=== PATIENT | female | born 1955 | race Caucasian/White ===

== ENCOUNTER 2024-06-26 10:57 | Inpatient (IN) | payer MEDICARE, BC, SELFPAY ==
[2024-06-26] VITALS (18 sets, daily range): BP systolic 118–170; BP diastolic 84–108; PULSE 76–93; RESP 15–21; TEMP 36.6–36.9; O2SAT 87–100; BMI 25.8
--- NOTE | 2024-06-26 11:29 | EKG_ITS ---
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
--- NOTE | 2024-06-26 11:32 | PD.EDABDPN ---
ED Abdominal Pain RME/HPI General Chief Complaint: Abdominal Pain Stated complaint: ABDOMINAL PAIN Time seen by provider: 06/26/24 11:08 Arrival date/time: 06/26/24 10:57 RME / HPI RME / HPI narrative: 68-year-old female patient with significant history of hypertension, was brought in by EMS for evaluation regarding vomiting. Patient's been having abdominal pain, diffuse in character more on the lower abdomen, severity moderate, associated with vomiting. Onset of symptoms for 1 to 2 days. Patient denies any fever denies any diarrhea or constipation last bowel movement yesterday. Patient called her PCP and was advised to go to the emergency room to rule out small bowel obstruction. Surgery include vaginal hysterectomy. Patient drink wine at least 2 glasses every day. Related Data Home Medications ?Medication ?Instructions ?Recorded ?Confirmed alprazolam 1 mg tablet (Xanax) 0.5 mg PO DAILY #0 tabs 01/15/15 09/30/22 Held on 09/30/22. Instructions: Resume on 10/01/22. fluticasone propionate 45 2 puff inhalation QDAY #0 puffs 03/30/09/30/22 mcg-salmeterol 21 mcg/actuation HFA inhaler (Advair HFA) albuterol sulfate 90 mcg/actuation 1 puff inhalation Q4H 09/21/18 09/30/22 aerosol inhaler (ProAir HFA) duloxetine 60 mg capsule,delayed 60 mg PO QDAY 09/21/18 09/30/22 release (Cymbalta) metoprolol succinate 25 mg 12.5 mg PO QDAY 09/21/18 09/30/22 tablet,extended release 24 hr acetaminophen 650 mg 650 mg PO Q8H 10/27/20 09/30/22 tablet,extended release (Tylenol 8 Hour) omeprazole 20 mg tablet,delayed 20 mg PO BID 10/27/20 09/30/22 release montelukast 10 mg tablet 10 mg PO DAILY 08/08/22 09/30/22 tramadol 50 mg tablet 50 mg PO QID 08/08/22 09/30/22 Held on 09/30/22. Instructions: Resume on 10/01/22. ascorbic acid (vitamin C) 1,000 mg 1 g PO QDAY 09/30/22 09/30/22 tablet (Vitamin C) inulin 2 gram chewable tablet 2 g PO QDAY 09/30/22 09/30/22 (Prebiotic Fiber) magnesium 500 mg tablet 500 mg PO QDAY 09/30/22 09/30/22 multivitamin 1 tab PO QDAY 09/30/22 09/30/22 zinc 50 mg tablet 50 mg PO QDAY 09/30/22 09/30/22 Allergies Allergy/AdvReac Type Severity Reaction Status Date / Time CLAUDE Inhibitors Allergy Severe Anaphylaxis Verified 09/30/22 11:52 bacitracin (From Neosporin Allergy Redness of Verified 09/30/22 11:52 ([id number])) Skin morphine Allergy SEVERE Verified 09/30/22 11:52 ITCHING neomycin (From Neosporin Allergy Redness of Verified 09/30/22 11:52 ([id number])) Skin polymyxin B (From Neosporin Allergy Redness of Verified 09/30/22 11:52 ([id number])) Skin Review of Systems Review of Systems Narrative Review of Systems: Review of system reviewed and within normal limits except mentioned in HPI ED Exam Narrative Physical exam: VITAL SIGNS: Reviewed. GENERAL APPEARANCE: Alert and interactive, follows commands, no acute distress, HEAD AND FACE: Non-traumatic. ENT: PERRL, pink conjunctivitis, eyelid no trauma, Mucous membrane moist. NECK: Supple, nontender, no nuchal rigidity. CHEST: No tenderness, no crepitus, no paradoxical movement, no retractions. LUNGS: Clear, well ventilated, symmetric, no rales, no wheezing, no ronchi, no stridor, good breath sounds bilaterally. HEART: Regular rate, regular rhythm, no murmur, no gallops. ABDOMEN: Soft, positive bowel sounds, nondistended, no guarding, diffuse tenderness , no rebound, no masses, RECTAL: Deferred. GENITAL: Deferred. NEUROLOGICAL: Gross motor function intact sensory function intact, Appropriate for age. MUSCULOSKELETAL: low back nontender, full range of motion. EXTREMITIES: Nontender, full range of motion. SKIN: Color pink, dry, no rash, no lacerations, no abrasions, no contusions. LYMPHATICS: Deferred. Course Quality Measures none Orders Category Date Time Status COVID-19 Screening Questionnaire NOW Care 06/26/24 16:57 Active COVID-19 Screening Questionnaire NOW Care 06/26/24 16:[address] Screening NOW Care 06/26/24 13:05 Active Decision to Admit X1 Care 06/26/24 16:57 Active Decision to Admit X1 Care 06/26/24 16:58 Active EKG (ED ONLY) *Do not use* NOW Care 06/26/24 11:[address] abdomen pelvis w con Stat Exams 06/26/24 13:05 Completed EKG (ED Only) Stat Exams 06/26/24 11:29 Ordered US gall bladder Stat Exams 06/26/24 15:59 Taken CBC Stat Lab 06/26/24 11:34 Completed Comprehensive Metabolic Panel Stat Lab 06/26/24 11:34 Completed Lipase Stat Lab 06/26/24 11:34 Completed Lipid Panel Stat Lab 06/26/24 11:34 Completed Partial Thromboplastin Time Stat Lab 06/26/24 11:34 Completed Prothrombin Time with INR Stat Lab 06/26/24 11:34 Completed UA, C/S IF [Urinalysis, C/S if Indicated] Stat Lab 06/26/24 11:30 Ordered HYDROmorphone INJ [Dilaudid Inj] Med 06/26/24 11:28 Discontinued 1 mg IVP X1 ONE Ondansetron Inj [Zofran Inj] Med 06/26/24 11:28 Discontinued 4 mg IV X1 ONE POTASSIUM CHL 10 mEq IVPB [Kcl Ivpb] Med 06/26/24 12:29 Discontinued 10 meq in 100 ml IV X1 Potassium Chloride [K-Dur] Med 06/26/24 12:52 Discontinued 40 meq PO X1 ONE Sodium Chloride 0.9% 1000 ml [Ns] 1,000 ml Med 06/26/24 11:31 Discontinued IV 999 mls/hr Vital Signs Vital signs: Vital Signs Temperature 98.1 F 06/26/24 10:58 Pulse Rate 90 06/26/24 10:58 Respiratory Rate 21 H 06/26/24 10:58 Blood Pressure 158/96 H 06/26/24 10:58 Pulse Oximetry (%) 96 06/26/24 10:58 Oxygen Delivery Method Room Air 06/26/24 10:58 Abdominal Pain MDM MDM Narrative MDM Narrative:: 68-year-old female patient with significant history of hypertension, was brought in by EMS for evaluation regarding vomiting. Patient's been having abdominal pain, diffuse in character more on the lower abdomen, severity moderate, associated with vomiting. Onset of symptoms for 1 to 2 days. Patient denies any fever denies any diarrhea or constipation last bowel movement yesterday. Patient called her PCP and was advised to go to the emergency room to rule out small bowel obstruction. Surgery include vaginal hysterectomy. Patient drink wine at least 2 glasses every day. Laboratory workup is significant for 11.9 leukocytosis. CMP sodium 1.8 potassium 3.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 Primary care discussed with the patient regarding admission due to acute pancreatitis. Patient agrees with the plan. Patient data External records reviewed:: None Clinical information provided by:: patient Social determinants that could affect healthcare access:: none Patient has the following chronic illnesses:: Hypertension How is presenting disease/condition affected by chronic disease/condition?: uneffected by Evaluation data The following diagnostics were reviewed and interpreted by me:: lab results, radiology exam(s) and EKG tracing(s) Lab and/or radiology exams considered but not ordered:: None Interpretation Summary: See results in MDM Medications / Prescriptions Medications or Prescriptions considered but not ordered:: None Medication administrations:: Medication Administration History Discontinued Medications Hydromorphone HCl (Hydromorphone Inj 2 Mg/Ml Vial) 1 mg IVP X1 ONE Stop: 06/26/24 11:29 Last Admin: 06/26/24 11:41 Dose: 1 mg Documented By: JUANITA Sodium Chloride (Ns) 1,000 mls @ 999 mls/hr IV .Q1H1M ONE Stop: 06/26/24 12:31 Last Infusion: 06/26/24 13:14 Dose: Infused Documented By: Admin: 06/26/24 11:41 Dose: 999 mls/hr Documented By: JUANITA Potassium Chloride (Kcl Ivpb) 10 meq in 100 mls @ 100 mls/hr IV X1 ONE Stop: 06/26/24 13:28 Last Admin: 06/26/24 12:54 Dose: Not Given Documented By: JUANITA Non-Admin Reason: Discontinued Ondansetron HCl (Ondansetron Inj 2 Mg/Ml Inj 2 Ml) 4 mg IV X1 ONE; Protocol Stop: 06/26/24 11:29 Last Admin: 06/26/24 11:41 Dose: 4 mg Documented By: JUANITA Potassium Chloride (Potassium Chloride 20 Meq Tabcr) 40 meq PO X1 ONE Stop: 06/26/24 12:53 Last Admin: 06/26/24 13:00 Dose: 40 meq Documented By: JUANITA IV fluids for hydration, IV Dilaudid potassium replacement and Zofran Consultations Consultation(s) initiated? (list below): No Diagnosis Differential diagnosis abdominal pain: abdominal pain, pancreatitis and small bowel obstruction Most likely diagnosis given after review of the tests above:: Acute pancreatitis Admission Indicated Admission indicated?: indicated Admission Request Was there a request for admission?: Yes Admission Attestation Admission request attestation: Discussed case with Dr Lainez[] from Hospitalist service regarding admission. Discussed patients ED course, exam findings, labs, and radiology results. The Hospitalist [agrees] to accept the patient for admission. Disposition Plan Disposition Plan: Admit Discharge Plan Plan Patient Disposition: Admit Acute Care w/in Hospital Prescriptions/Referrals Prescriptions/Med Rec: No Action alprazolam [Xanax] 1 MG tablet 0.5 mg PO DAILY Qty: 0 fluticasone propion-salmeterol [Advair HFA] 45-21 mcg/actuation Hfa Aerosol Inhaler 2 puff INHALATION QDAY Qty: 0 metoprolol succinate 25 mg Tablet Extended Release 24 Hr 12.5 mg PO QDAY albuterol sulfate [ProAir HFA] 90 mcg/actuation Hfa Aerosol Inhaler 1 puff INHALATION Q4H duloxetine [Cymbalta] 60 mg Capsule,Delayed Release(Dr/Ec) 60 mg PO QDAY acetaminophen [Tylenol 8 Hour] 650 mg Tablet Extended Release 650 mg PO Q8H omeprazole 20 mg Tablet,Delayed Release (Dr/Ec) 20 mg PO BID montelukast 10 mg tablet 10 mg PO DAILY tramadol 50 mg tablet 50 mg PO QID multivitamin Tablet 1 tab PO QDAY ascorbic acid (vitamin C) [Vitamin C] 1,000 mg Tablet 1 g PO QDAY magnesium 500 mg Tablet 500 mg PO QDAY zinc 50 mg Tablet 50 mg PO QDAY Prebiotic Fiber 2 gram Tablet,Chewable 2 g PO QDAY Referrals: Daniel Milligan MD [Primary Care Provider] - In 1 week Problem List Clinical Impression: Abdominal pain, Acute pancreatitis Patient/Caregiver Discharge Instructions Print Language: [place] Stand Alone Forms: Noemi Award Info., Patient Portal Info Letter
[2024-06-26 11:41] LABS: Basophils # (Auto) 0.1 Thou/mm3 (0.0-0.2); Basophils % (Auto) 1 % (0-2.5); Eosinophils # (Auto) 0.1 Thou/mm3 (0.0-0.5); Eosinophils % (Auto) 1 % (0-10); Hematocrit 36.9 % (36.0-46.0); Hemoglobin 12.8 g/dL (12.0-16.0); Immature Granulocytes % (Auto) 1 % (0-0); Immature Granulocytes Auto 0.06 Thou/mm3 (0.00-0.00); Lymphocytes # (Auto) 1.3 Thou/mm3 (1.0-4.8); Lymphocytes % (Auto) 11 % (10-50); Mean Corpuscular HGB Conc 34.7 g/dl (31.0-37.0); Mean Corpuscular Hemoglobin 33.2 pg (25.0-35.0); Mean Corpuscular Volume 96 fL (80-100); Monocytes # (Auto) 0.3 Thou/mm3 (0.0-0.8); Monocytes % (Auto) 2 % (0-12); Neutrophils # (Auto) 10.1 Thou/mm3 (1.8-7.7); Neutrophils % (Auto) 85 % (37-80); Nucleated Red Blood Cell % 0 /100 WBC (0); Platelet Count 384 Thou/mm3 (140-440); RDW Standard Deviation 46.3 fL (36.4-46.3); Red Blood Count 3.86 Miln/mm3 (4.00-5.20); White Blood Count 11.9 Thou/mm3 (3.6-11.0)
[2024-06-26] MEDS: SODIUM CHLORIDE 0.9% 1000 ML 1,000 ML 999 ML IV (11:41)
[2024-06-26] MEDS: HYDROmorphone INJ 2 MG/ML VIAL 1 MG IVP ×3 (11:41→23:53)
[2024-06-26] MEDS: ONDANSETRON INJ 2 MG/ML INJ 2 ML 4 MG IV (11:41)
[2024-06-26 12:00] LABS: Partial Thromboplastin Time 27.9 Seconds (22.0-36.0); Prothrombin Time 11.4 Seconds (9.0-12.2)
[2024-06-26 12:06] LABS: Alanine Aminotransferase 15 U/L (10-49); Albumin, Serum 4.5 gm/dL (3.4-4.8); Albumin/Globulin Ratio 1.3 (1.2-2.2); Alkaline Phosphatase 94 U/L (46-116); Anion Gap 10 (7-16); Aspartate Amino Transferase 12 U/L (0-34); BUN/Creatinine Ratio 20 Ratio (12-20); Bilirubin,Total 0.8 mg/dL (0.3-1.2); Blood Urea Nitrogen 18 mg/dL (9-23); Calcium 10.3 mg/dL (8.3-10.6); Calcium (Corrected) 10.3 mg/dL (8.5-10.1); Chloride 85 mMol/L (98-107); Creatinine (Component) 0.9 mg/dL (0.6-1.3); Globulin 3.6 gm/dL (2.3-3.5); Glucose 123 mg/dL (74-106); Lipase 123 U/L (12-53); Osmolality,Calculated 259 (275-295); Potassium 3.2 mMol/L (3.4-5.1); Sodium 128 mMol/L (136-145); Total Protein 8.1 gm/dL (5.7-8.2); eGFR > 60 See Note
[2024-06-26] MEDS: POTASSIUM CHLORIDE 20 mEq TABCR 40 MEQ PO (13:00)
--- NOTE | 2024-06-26 13:05 | XR_ITS ---
Examination: CT abdomen with intravenous contrast CT pelvis with intravenous contrast 2-D coronal reconstructions 2-D sagittal reconstructions Date and time of exam:June 26, 2024 1447 hours INDICATIONS: Abdominal pain beginning one week ago. CTDI: vol (mGy) 7.74 DLP: (mGycm) 117 Technique: Multiple axial sections of the abdomen and pelvis have been obtained. 64 slice high-resolution scanner used. 3 mm axial sections have been obtained, post intravenous injection 60 cc [id number] 2-D sagittal, coronal reconstructions obtained. Low dose protocols were performed. One or more of the following dose reduction techniques were used; automated exposure control, adjustment of the mA and/or KV according to patient size, use of iterative reconstruction technique. 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
--- NOTE | 2024-06-26 15:59 | XR_ITS ---
Examination: Abdomen sonogram, Limited Date and time of exam: June 26, 2024 1605 hours INDICATIONS: Onset abdominal pain today Technique: Real-time krishna scale transabdominal sonographic images of the upper abdomen obtained. Findings: Normal gallbladder Normal common bile duct 0.3 cm Pancreatic head 2.6 cm Liver 20.6 cm fatty infiltration Normal hepatopedal portal venous flow Patent IVC IMPRESSION: Negative for cholelithiasis, negative for cholecystitis Moderate hepatomegaly fatty infiltration
[2024-06-26 16:38] LABS: Cardiac Risk Estimate 2.2 RATIO (3.7-5.6); Cholesterol 187 mg/dL (132-200); HDL Cholesterol 86 mg/dL (40-60); LDL Cholesterol,Calculated 75 mg/dL (0-130); Triglycerides 129 mg/dL (30-150)
--- NOTE | 2024-06-26 17:48 | PD.RESHP ---
Documentation for date of: 06/26/24 [facility] History of Present Illness Chief complaint: epigastric pain History of present illness: The patient is a 68-year-old female with a previous medical history of hypertension, rheumatoid arthritis, chronic back pain who was brought to the ED due to epigastric pain 6?710 and vomiting once that started a day ago. Patient reports that she was sent to the ED by her PCP. She reports that the pain started a day ago, reported vomited once, no blood in the vomitus. Denies bloody bowel movements. She reports drinking 2 glasses of wine every day, last alcohol dose was yesterday. She reported that she was recently diagnosed with rheumatoid arthritis, she tried Plaquenil and methotrexate but reports that those medication did not fit her and she was started on immunotherapy. She is being admitted for acute pancreatitis. Home meds: Propranolol, meclizine, folic acid, prednisone as needed, Xanax 0.5 as needed, Cymbalta, omeprazole, tramadol every 8 hr as needed. In the ED blood pressure was 158/96, saturating well on 4 L NC, afebrile. Labs showed WBC 11.9, hemoglobin 12.8, sodium 128, potassium 3.2, ALT AST levels are normal, T. bili 0.8, corrected calcium 10.3, triglycerides 129, lipase 123, LDL cholesterol 75. Abdomen pelvis CT report showed acute pancreatitis. Gallbladder ultrasound was negative for cholelithiasis, cholecystitis, showed moderate fatty liver. Review of Systems Review of Systems Systems Reviewed: All systems reviewed, normal except as documented Exam Vital Signs Temp Pulse Resp BP Pulse Ox O2 Del Method O2 Flow Rate 98.0 F 80 18 161/96 H 100 Nasal Cannula 4 06/26/24 16:35 06/26/24 16:35 06/26/24 16:35 06/26/24 16:35 06/26/24 16:35 06/26/24 16:35 06/26/24 16:35 Narrative Exam Physical Exam General: Awake and in no acute distress. Conversational and non-toxic appearing. HEENT: Normocephalic, atraumatic, mucous membranes moist. Heart: Regular rate and rhythm, no murmurs. Lungs: Clear to auscultation with no wheezing or crackles. Abdomen: Soft, nondistended, moderate epigastric tenderness. ?No guarding or rebound tenderness. Neurologic: Alert and oriented x3, no gross neurological deficit, and patient able to move all 4 extremities. Extremities: No edema. Skin: Ecchymoses. Bilateral tibial excoriations. Results: Labs 06/27/24 06:48 06/27/24 06:48 Labs: Short CBC 06/26/24 Range/Units 11:34 WBC 11.9 H (3.6-11.0) Thou/mm3 Hgb 12.8 (12.0-16.0) g/dL Hct 36.9 (36.0-46.0) % Plt Count 384 (140-440) Thou/mm3 BMP 06/26/24 11:34 Sodium 128 L Potassium 3.2 L Chloride 85 L Carbon Dioxide 33.0 H BUN 18 Creatinine 0.9 Glucose 123 H Calcium 10.3 Liver Function 06/26/24 Range/Units 11:34 Total Bilirubin 0.8 (0.3-1.2) mg/dL AST 12 (0-34) U/L ALT 15 (10-49) U/L Alkaline Phosphatase 94 (46-116) U/L Albumin 4.5 (3.4-4.8) gm/dL Quality Measures Quality Measures VTE prophylaxis Advance care planning discussed with:: patient Medications Home Medications and Allergies Home Medications ?Medication ?Instructions ?Recorded ?Confirmed ?Type alprazolam 1 mg tablet (Xanax) 0.5 mg PO DAILY #0 tabs 01/15/15 06/27/24 History Held on 09/30/22. Instructions: Resume on 10/01/22. fluticasone propionate 45 2 puff inhalation QDAY #0 puffs 03/30/16 09/30/22 History mcg-salmeterol 21 mcg/actuation HFA inhaler (Advair HFA) albuterol sulfate 90 mcg/actuation 1 puff inhalation Q4H 09/21/18 09/30/22 History aerosol inhaler (ProAir HFA) duloxetine 60 mg capsule,delayed 60 mg PO QDAY 09/21/18 06/27/24 History release (Cymbalta) metoprolol succinate 25 mg 12.5 mg PO QDAY 09/21/18 09/30/22 History tablet,extended release 24 hr acetaminophen 650 mg 650 mg PO Q8H 10/27/20 09/30/22 History tablet,extended release (Tylenol 8 Hour) omeprazole 20 mg tablet,delayed 20 mg PO BID 10/27/20 09/30/22 History release montelukast 10 mg tablet 10 mg PO DAILY 08/08/22 09/30/22 History tramadol 50 mg tablet 50 mg PO QID 08/08/22 06/27/24 History Held on 09/30/22. Instructions: Resume on 10/01/22. ascorbic acid (vitamin C) 1,000 mg 1 g PO QDAY 09/30/22 09/30/22 History tablet (Vitamin C) inulin 2 gram chewable tablet 2 g PO QDAY 09/30/22 09/30/22 History (Prebiotic Fiber) magnesium 500 mg tablet 500 mg PO QDAY 09/30/22 09/30/22 History multivitamin 1 tab PO QDAY 09/30/22 09/30/22 History zinc 50 mg tablet 50 mg PO QDAY 09/30/22 09/30/22 History famotidine 20 mg tablet 20 mg PO BID 06/27/24 06/27/24 History meclizine 25 mg tablet 25 mg PO BID 06/27/24 06/27/24 History prednisone 10 mg tablet 10 mg PO DAILY 06/27/24 06/27/24 History propranolol 10 mg tablet 10 mg PO AC 06/27/24 06/27/24 History Allergies Allergy/AdvReac Type Severity Reaction Status Date / Time CLAUDE Inhibitors Allergy Severe Anaphylaxis Verified 09/30/22 11:52 bacitracin (From Neosporin Allergy Redness of Verified 09/30/22 11:52 ([id number])) Skin morphine Allergy SEVERE Verified 09/30/22 11:52 ITCHING neomycin (From Neosporin Allergy Redness of Verified 09/30/22 11:52 ([id number])) Skin polymyxin B (From Neosporin Allergy Redness of Verified 09/30/22 11:52 ([id number])) Skin Visit Medications Acetaminophen (Acetaminophen 325 Mg Tablet) 650 mg PO Q6H PRN PRN Reason: Fever >101.5 Stop: 07/26/24 17:36 Heparin Sodium (Porcine) (Heparin Sod Inj 5000 Unit/Ml Vial) 5,000 unit SC Q8HR [facility] Stop: 07/10/24 21:59 Hydromorphone HCl (Hydromorphone Inj 2 Mg/Ml Vial) 1 mg IVP Q2H PRN PRN Reason: PAIN SCALE 4-10(Mod-Sev Stop: 07/01/24 17:36 Lactated Ringer's (Lactated Ringers) 1,000 mls @ 150 mls/hr IV .Q6H40M ANDREEA Stop: 07/26/24 17:44 Ketorolac Tromethamine (Ketorolac Inj 30 Mg/Ml Vial) 15 mg IVP Q6HR PRN PRN Reason: PAIN 1-6 (mild-mod Stop: 07/01/24 17:36 Ondansetron HCl (Ondansetron Inj 2 Mg/Ml Inj 2 Ml) 4 mg IV Q6H PRN; Protocol PRN Reason: NAUSEA OR VOMITING Stop: 07/26/24 17:36 Discontinued Medications Hydromorphone HCl (Hydromorphone Inj 2 Mg/Ml Vial) 1 mg IVP X1 ONE Stop: 06/26/24 11:29 Last Admin: 06/26/24 11:41 Dose: 1 mg Sodium Chloride (Ns) 1,000 mls @ 999 mls/hr IV .Q1H1M ONE Stop: 06/26/24 12:31 Last Infusion: 06/26/24 13:14 Dose: Infused Potassium Chloride (Kcl Ivpb) 10 meq in 100 mls @ 100 mls/hr IV X1 ONE Stop: 06/26/24 13:28 Last Admin: 06/26/24 12:54 Dose: Not Given Ondansetron HCl (Ondansetron Inj 2 Mg/Ml Inj 2 Ml) 4 mg IV X1 ONE; Protocol Stop: 06/26/24 11:29 Last Admin: 06/26/24 11:41 Dose: 4 mg Potassium Chloride (Potassium Chloride 20 Meq Tabcr) 40 meq PO X1 ONE Stop: 06/26/24 12:53 Last Admin: 06/26/24 13:00 Dose: 40 meq Assessment & Plan Plan The patient is a 68-year-old female with a previous medical history of hypertension, rheumatoid arthritis who was brought to the ED due to epigastric pain 6?7/10 and vomiting once. She was admitted for acute pancreatitis. #Acute pancreatitis Differential diagnosis: Gallstone pancreatitis versus alcohol versus autoimmune Patient has an epigstric pain 6-7/10. CT showed signs of acute pancreatitis. Gallbladder ultrasound was negative for cholelithiasis, calculus cholecystitis. Triglycerides level is normal. T. bili, AST, ALT level is normal. Plan: ? IV hydration ? Clear liquid diet, if not able to tolerate, then N.p.o. ?THIEN antibodies, CRP, ESR, IgG4 ordered ?Will continue to monitor CMP ? Pain control as needed #Hypertension Will hold home BP medication for now - med rec is pending #Chronic pain Plan: - home duloxetin #Rheumatoid arthritis - pain control as needed - prednisone 10 mg qday Health maintenance: FEN: clear liquid diet, if not able to tolerate, then NPO DVT prophylaxis: heparin q8hr GI prophylaxis: pantoprazole 40 mg po Dispo: med tele CODE STATUS: Full code Plan of care discussed with attending Dr. Fink, PGY-[address] Lainez and PGY-[address] Macdonald. An Spear MD, PGY 1. Attending Provider Attestation/Addendum Agustin, Britney Fink DO, attest that I was physically present for the quintana portions of the service and evaluated the patient with the resident and I reviewed and discussed the case with the resident and agree with the resident's findings and plans of care as documented above Patient is a 68-year-old female past medical history of hypertension, rheumatoid arthritis, fibromyalgia, SIADH who was brought to the ED due to worsening epigastric pain, nausea and vomiting that began at 5:30 AM this morning. Patient denies any previous episodes of epigastric pain of this nature in the past. She states that she drinks 2 glasses of wine every day. CT abdomen pelvis was done in the ED showing evidence of acute pancreatitis. Gallbladder ultrasound was negative for cholelithiasis or any cholecystitis. She has noted to have moderate hepatomegaly and fatty infiltration. Triglycerides is within normal limits. Patient states that her family has strong history of autoimmune diseases. She states that she is to start infusions for her RA next week and has been on prednisone 10 mg p.o. daily. She has failed methotrexate and Plaquenil in the past due to side effects. Will admit patient to med/surg for further workup and medical management of acute pancreatitis likely secondary to alcohol use versus autoimmune. Will obtain IgG to rule out autoimmune pancreatitis. Will continue prednisone at this time, IV fluids and pain control. Patient states that pain is improved with Dilaudid. She otherwise uses tramadol and Tylenol every 8 hours at home to control her pain for her RA. Will start with clear liquid diets. Will advance diet as tolerated.
[2024-06-26] MEDS: SODIUM CHLORIDE 0.9% 1000 ML 1,000 ML 150 ML IV (18:23)
[2024-06-26 18:49] LABS: Albumin, Serum 4.1 gm/dL (3.4-4.8); Anion Gap 7 (7-16); BUN/Creatinine Ratio 26 Ratio (12-20); Blood Urea Nitrogen 18 mg/dL (9-23); Calcium 10.3 mg/dL (8.3-10.6); Calcium (Corrected) 10.3 mg/dL (8.5-10.1); Carbon Dioxide 30.7 mMol/L (20.0-31.0); Chloride 93 mMol/L (98-107); Creatinine (Component) 0.7 mg/dL (0.6-1.3); Estimated Creatinine Clearance 78.5 mL/min (>60); Glucose 121 mg/dL (74-106); Osmolality,Calculated 265 (275-295); Phosphorous 3.8 mg/dL (2.4-5.1); Potassium 4.1 mMol/L (3.4-5.1); Sodium 131 mMol/L (136-145); eGFR > 60 See Note
[2024-06-26 18:57] LABS: Collection Type, Urine Clean Catch; RBC,Urine 0 /hpf (0-3); WBC,Urine 0 /hpf (0-5)
[2024-06-26 19:28] LABS: Bilirubin,Urine Negative (Negative); Blood,Urine Negative (Negative); Clarity,Urine Clear (Clear/Hazy); Color,Urine Yellow (Lt Yel-Yel); Culture Indicated,Urine Not Indicated; Glucose, Urine Negative (Negative); Ketones,Urine Negative (Negative); Leukocyte Esterase,Urine Negative (Negative); Nitrite,Urine Negative (Negative); Protein,Urine Trace (Neg - Trace); Squamous Epithelial Cell,Urine 2 /hpf (0-5); Urobilinogen,Urine Negative mg/dL (0.0-1.0)
[2024-06-26 19:29] LABS: Sed Rate (ESR) 72 mm/hr (0-30)
[2024-06-26 19:38] LABS: C-Reactive Protein 3.8 mg/dL (0.0-0.9)
[2024-06-26 19:41] LABS: Specific Gravity,Urine > 1.035 (1.001-1.035)
--- NOTE | 2024-06-26 22:00 | PC.NURSE ---
per pt request, scotty put in place.
[2024-06-26] MEDS: HEPARIN SOD INJ 5000 UNIT/ML VIAL SC (22:51)
[2024-06-26] MEDS: KETOROLAC INJ 30 MG/ML VIAL 15 MG IVP (23:51)
[2024-06-27] VITALS (8 sets, daily range): BP systolic 123–178; BP diastolic 76–98; PULSE 78–103; RESP 18–22; TEMP 36.1–36.6; O2SAT 96–100; BMI 27.6
[2024-06-27] MEDS: SODIUM CHLORIDE 0.9% 1000 ML 1,000 ML 150 ML IV ×4 (00:58→21:24)
[2024-06-27] MEDS: HEPARIN SOD INJ 5000 UNIT/ML VIAL SC ×2 (05:56→21:10)
[2024-06-27 07:11] LABS: Basophils # (Auto) 0.1 Thou/mm3 (0.0-0.2); Basophils % (Auto) 1 % (0-2.5); Eosinophils # (Auto) 0.1 Thou/mm3 (0.0-0.5); Eosinophils % (Auto) 2 % (0-10); Hematocrit 32.4 % (36.0-46.0); Hemoglobin 10.8 g/dL (12.0-16.0); Immature Granulocytes % (Auto) 0 % (0-0); Immature Granulocytes Auto 0.02 Thou/mm3 (0.00-0.00); Lymphocytes # (Auto) 0.5 Thou/mm3 (1.0-4.8); Lymphocytes % (Auto) 8 % (10-50); Mean Corpuscular HGB Conc 33.3 g/dl (31.0-37.0); Mean Corpuscular Hemoglobin 33.5 pg (25.0-35.0); Mean Corpuscular Volume 101 fL (80-100); Monocytes # (Auto) 0.5 Thou/mm3 (0.0-0.8); Monocytes % (Auto) 8 % (0-12); Neutrophils % (Auto) 82 % (37-80); Nucleated Red Blood Cell % 0 /100 WBC (0); Platelet Count 273 Thou/mm3 (140-440); RDW Standard Deviation 48.2 fL (36.4-46.3); Red Blood Count 3.22 Miln/mm3 (4.00-5.20); White Blood Count 6.1 Thou/mm3 (3.6-11.0)
[2024-06-27 07:19] LABS: Sed Rate (ESR) 59 mm/hr (0-30)
[2024-06-27 07:26] LABS: Misc Send Out* See Sep Rpt
[2024-06-27 07:39] LABS: Alanine Aminotransferase 11 U/L (10-49); Albumin, Serum 3.9 gm/dL (3.4-4.8); Albumin/Globulin Ratio 1.4 (1.2-2.2); Alkaline Phosphatase 68 U/L (46-116); Anion Gap 8 (7-16); Aspartate Amino Transferase 14 U/L (0-34); BUN/Creatinine Ratio 27 Ratio (12-20); Bilirubin,Total 0.5 mg/dL (0.3-1.2); Blood Urea Nitrogen 19 mg/dL (9-23); C-Reactive Protein 5.4 mg/dL (0.0-0.9); Calcium 9.3 mg/dL (8.3-10.6); Calcium (Corrected) 9.4 mg/dL (8.5-10.1); Carbon Dioxide 30.1 mMol/L (20.0-31.0); Chloride 94 mMol/L (98-107); Creatinine (Component) 0.7 mg/dL (0.6-1.3); Globulin 2.8 gm/dL (2.3-3.5); Glucose 94 mg/dL (74-106); Magnesium 1.9 mg/dL (1.6-2.6); Osmolality,Calculated 266 (275-295); Potassium 3.9 mMol/L (3.4-5.1); Sodium 132 mMol/L (136-145); Total Protein 6.7 gm/dL (5.7-8.2); eGFR > 60 See Note
[2024-06-27] MEDS: PANTOPRAZOLE 40 MG TABLET PO (09:16)
[2024-06-27] MEDS: predniSONE 5 MG TABLET 10 MG PO (09:16)
[2024-06-27] MEDS: HYDROmorphone INJ 2 MG/ML VIAL 1 MG IVP ×2 (09:17→21:07)
[2024-06-27 10:46] LABS: Lipase 41 U/L (12-53)
--- NOTE | 2024-06-27 15:56 | ESPR_ITS ---
Documentation for date of: 06/27/24 Subjective Subjective Interval history: Patient was seen and examined by the bedside. No acute overnight events. Patient is feeling well. Slept well overnight, reported epigastric open 7 out of 10, controlled with pain medications as needed. Holding montelukast and duloxetine due to possible side effect of acute pancreatitis. Continues to receive fluids IV. On examination was noted to have high-frequency tremor of the hands, patient reported that she has been having a tremor for a long time. Transition to full liquid diet, will advance as tolerated. Exam Vital Signs Temp Pulse Resp BP Pulse Ox O2 Del Method O2 Flow Rate 97.8 F 78 18 123/76 96 Nasal Cannula 2 06/27/24 12:00 06/27/24 12:43 06/27/24 12:00 06/27/24 12:43 06/27/24 12:00 06/27/24 12:00 06/27/24 12:00 Narrative Exam Physical Exam General: Awake and in no acute distress. Conversational and non-toxic appearing. HEENT: Normocephalic, atraumatic, mucous membranes moist. Heart: Regular rate and rhythm, no murmurs. Lungs: Clear to auscultation with no wheezing or crackles. Abdomen: Soft, mildly distended, moderate epigastric tenderness. ?No guarding or rebound tenderness. Neurologic: Alert and oriented x3, no gross neurological deficit, and patient able to move all 4 extremities. Extremities: No edema. Skin: Ecchymoses. Bilateral tibial excoriations. Objective Labs 06/28/24 04:20 06/28/24 04:20 Labs: Laboratory Results - last 24 hr 06/26/24 06/26/24 06/26/24 11:34 18:10 18:51 WBC RBC Hgb Hct MCV MCH MCHC RDW Std Deviation Plt Count Neut % (Auto) Lymph % (Auto) [place] % (Auto) Eos % (Auto) Baso % (Auto) Neut # (Auto) Lymph # (Auto) [place] # (Auto) Eos # (Auto) Baso # (Auto) Immature Gran # (Auto) Absolute Nucleated RBC Immature Gran % Nucleated RBC % ESR 72 H Sodium 131 L Potassium 4.1 D Chloride 93 L Carbon Dioxide 30.7 Anion Gap 7 BUN 18 Creatinine 0.7 Estim Creat Clear Calc 78.5 eGFR > 60 BUN/Creatinine Ratio 26 H Glucose 121 H Calculated Osmolality 265 L Calcium 10.3 Corrected Calcium 10.3 H Phosphorus 3.8 Magnesium Total Bilirubin AST ALT Alkaline Phosphatase C-Reactive Prot, Quant 3.8 H Total Protein Albumin 4.1 Globulin Albumin/Globulin Ratio Triglycerides 129 Cholesterol 187 LDL Cholesterol, Calc 75 HDL Cholesterol 86 H Cholesterol/HDL Ratio 2.2 L Lipase Ur Collection Type Clean Catch Urine Color Yellow Urine Clarity Clear Urine pH 7.0 Ur Specific [place] > 1.035 H Urine Protein Trace Urine Glucose (UA) Negative Urine Ketones Negative Urine Blood Negative Urine Nitrite Negative Urine Bilirubin Negative Urine Urobilinogen (Auto) Negative Ur Leukocyte Esterase Negative Urine RBC 0 Urine WBC 0 Ur Squamous Epith Cells 2 Urine Bacteria None Ur Culture Indicated? Not Indicated 06/27/24 06:48 WBC 6.1 D RBC 3.22 L Hgb 10.8 L D Hct 32.4 L MCV 101 H MCH 33.5 MCHC 33.3 RDW Std Deviation 48.2 H Plt Count 273 D Neut % (Auto) 82 H Lymph % (Auto) 8 L [place] % (Auto) 8 Eos % (Auto) 2 Baso % (Auto) 1 Neut # (Auto) 5.0 Lymph # (Auto) 0.5 L [place] # (Auto) 0.5 Eos # (Auto) 0.1 Baso # (Auto) 0.1 Immature Gran # (Auto) 0.02 H Absolute Nucleated RBC 0.00 Immature Gran % 0 Nucleated RBC % 0 ESR 59 H Sodium 132 L Potassium 3.9 Chloride 94 L Carbon Dioxide 30.1 Anion Gap 8 BUN 19 Creatinine 0.7 Estim Creat Clear Calc 81.0 eGFR > 60 BUN/Creatinine Ratio 27 H Glucose 94 Calculated Osmolality 266 L Calcium 9.3 Corrected Calcium 9.4 Phosphorus 4.0 Magnesium 1.9 Total Bilirubin 0.5 AST 14 ALT 11 Alkaline Phosphatase 68 D C-Reactive Prot, Quant 5.4 H Total Protein 6.7 Albumin 3.9 Globulin 2.8 Albumin/Globulin Ratio 1.4 Triglycerides Cholesterol LDL Cholesterol, Calc HDL Cholesterol Cholesterol/HDL Ratio Lipase 41 D Ur Collection Type Urine Color Urine Clarity Urine pH Ur Specific [place] Urine Protein Urine Glucose (UA) Urine Ketones Urine Blood Urine Nitrite Urine Bilirubin Urine Urobilinogen (Auto) Ur Leukocyte Esterase Urine RBC Urine WBC Ur Squamous Epith Cells Urine Bacteria Ur Culture Indicated? Quality Measures Quality Measures VTE prophylaxis Advance care planning discussed with:: patient Assessment & Plan Assessment Current Active Medications: Generic Name Dose Route Start Last Admin Trade Name Freq PRN Reason Stop Dose Admin Acetaminophen 650 mg 06/26/24 18:27 Acetaminophen 325 Mg Tablet PO 07/26/24 17:36 Q6H PRN Fever >100.4 or Pain 1-10 Protocol Heparin Sodium (Porcine) 5,000 unit 06/26/24 22:00 06/27/24 05:56 Heparin Sod Inj 5000 Unit/Ml Vial SC 07/10/24 21:59 5,000 unit Q8HR ANDREEA Administration Hydromorphone HCl 1 mg 06/26/24 18:27 06/27/24 09:17 Hydromorphone Inj 2 Mg/Ml Vial IVP 07/01/24 17:36 1 mg Q4H PRN Administration PAIN SCALE 7-10(Mod-Sev Sodium Chloride 1,000 mls @ 150 mls/hr 06/26/24 17:56 06/27/24 09:16 Ns IV 07/26/24 17:55 150 mls/hr .Q6H40M ANDREEA Administration Ketorolac Tromethamine 15 mg 06/26/24 17:37 06/26/24 23:51 Ketorolac Inj 30 Mg/Ml Vial IVP 07/01/24 17:36 15 mg Q6HR PRN Administration PAIN 1-6 (mild-mod Ondansetron HCl 4 mg 06/26/24 17:37 Ondansetron Inj 2 Mg/Ml Inj 2 Ml IV 07/26/24 17:36 Q6H PRN NAUSEA OR VOMITING Protocol Pantoprazole Sodium 40 mg 06/27/24 09:00 06/27/24 09:16 Pantoprazole 40 Mg Tablet PO 07/27/24 08:59 40 mg QDAY ANDREEA Administration Prednisone 10 mg 06/27/24 09:00 06/27/24 09:16 Prednisone 5 Mg Tablet PO 07/27/24 08:59 10 mg QDAY ANDREEA Administration Propranolol HCl 10 mg 06/27/24 11:00 06/27/24 12:43 Propranolol 10 Mg Tablet PO 07/27/24 10:59 Not Given BID ANDREEA Plan The patient is a 68-year-old female with a previous medical history of hypertension, rheumatoid arthritis who was brought to the ED due to epigastric pain 6?7/10 and vomiting once. She was admitted for acute pancreatitis. #Acute pancreatitis Differential diagnosis: Gallstone pancreatitis versus alcohol versus autoimmune Patient has an epigstric pain 6-10. CT showed signs of acute pancreatitis. Gallbladder ultrasound was negative for cholelithiasis, calculus cholecystitis. Triglycerides level is normal. T. bili, AST, ALT level is normal. Plan: ? IV hydration ? Full liquid diet, if able to tolerate, then advance the diet ?THIEN antibodies, CRP, ESR, IgG4 ordered ?Will continue to monitor CMP ? Pain control as needed #Hypertension Will hold home BP medication for now - med rec is pending #Chronic pain Plan: - home duloxetin on hold #Asthma - home montelukast is on hold for now #Rheumatoid arthritis - pain control as needed - prednisone 10 mg qday Health maintenance: FEN: full liquid diet, advance as tolerated DVT prophylaxis: heparin q8hr GI prophylaxis: pantoprazole 40 mg po Dispo: med tele CODE STATUS: Full code Plan of care discussed with attending Dr. Fink, PGY-[address] Lainez and PGY-[address] Macdonald. An Spear MD, PGY 1. --- ATTESTATION: I saw and examined the patient this morning, and I agree with current management stated by the resident. Will continue to monitor patient during their stay. Patient is a 68-year-old female past medical history hypertension, rheumatoid arthritis, depression anxiety, asthma who was admitted on 06/26/2024 due to acute pancreatitis. Patient's pain has been well-controlled and she has been tolerating clear liquid diet for which she was advanced to full liquid diet today. The exact cause of the pancreatitis has not been confirmed as patient has 2 risk factors with the alcohol and the autoimmunity. Will order IgG4 which will likely take a while to come back as it is on the. Repeat THIEN panel is also pending. Patient can likely be discharged tomorrow if she continues to improve and she will follow-up outpatient with PCP. Disclaimer: Despite multiple revisions, due to the dictation software being used, the document bellow may not be free of grammatical errors including phonetic/typographic errors. However, this does not deter from our commitment to providing health care in the patient's best interest in mind. Dr. López Macdonald, PGY-3 Attending Provider Attestation/Addendum I, Britney Fink DO, attest that I was physically present for the quintana portions of the service and evaluated the patient with the resident and I reviewed and discussed the case with the resident and agree with the resident's findings and plans of care as documented above Patient seen and evaluated this AM. No acute events overnight. Patient states she has been tolerating CLD. She continues to have some epigastric pain. Will advance diet as tolerated. Continue with IV fluids. Will transition from IV to PO pain medication as tolerated
[2024-06-27] MEDS: PROPRANOLOL 10 MG TABLET PO (21:08)
[2024-06-28] VITALS: BP 166/94; PULSE 98; RESP 19; TEMP 36.1; O2SAT 95
[2024-06-28] MEDS: ALPRazoLAM 0.25 MG TABLET 0.5 MG PO (01:14)
[2024-06-28 04:00] VITALS: BP 144/83; PULSE 92; RESP 19; TEMP 36.7; O2SAT 99
[2024-06-28] MEDS: HEPARIN SOD INJ 5000 UNIT/ML VIAL SC (05:24)
[2024-06-28] MEDS: SODIUM CHLORIDE 0.9% 1000 ML 1,000 ML 150 ML IV (05:27)
[2024-06-28 06:10] LABS: Basophils # (Auto) 0.1 Thou/mm3 (0.0-0.2); Basophils % (Auto) 1 % (0-2.5); Eosinophils # (Auto) 0.1 Thou/mm3 (0.0-0.5); Eosinophils % (Auto) 2 % (0-10); Hematocrit 32.4 % (36.0-46.0); Immature Granulocytes % (Auto) 0 % (0-0); Immature Granulocytes Auto 0.02 Thou/mm3 (0.00-0.00); Lymphocytes # (Auto) 0.9 Thou/mm3 (1.0-4.8); Lymphocytes % (Auto) 15 % (10-50); Mean Corpuscular Hemoglobin 33.7 pg (25.0-35.0); Mean Corpuscular Volume 99 fL (80-100); Monocytes # (Auto) 0.7 Thou/mm3 (0.0-0.8); Monocytes % (Auto) 11 % (0-12); Neutrophils # (Auto) 4.5 Thou/mm3 (1.8-7.7); Neutrophils % (Auto) 71 % (37-80); Nucleated Red Blood Cell % 0 /100 WBC (0); Platelet Count 306 Thou/mm3 (140-440); RDW Standard Deviation 45.8 fL (36.4-46.3); Red Blood Count 3.26 Miln/mm3 (4.00-5.20); White Blood Count 6.4 Thou/mm3 (3.6-11.0)
[2024-06-28 06:26] LABS: Alanine Aminotransferase 12 U/L (10-49); Albumin/Globulin Ratio 1.3 (1.2-2.2); Alkaline Phosphatase 68 U/L (46-116); Anion Gap 7 (7-16); Aspartate Amino Transferase 19 U/L (0-34); BUN/Creatinine Ratio 15 Ratio (12-20); Bilirubin,Total 0.4 mg/dL (0.3-1.2); Blood Urea Nitrogen 9 mg/dL (9-23); Calcium 9.3 mg/dL (8.3-10.6); Calcium (Corrected) 9.3 mg/dL (8.5-10.1); Carbon Dioxide 31.7 mMol/L (20.0-31.0); Chloride 95 mMol/L (98-107); Creatinine (Component) 0.6 mg/dL (0.6-1.3); Estimated Creatinine Clearance 94.5 mL/min (>60); Globulin 3.2 gm/dL (2.3-3.5); Glucose 76 mg/dL (74-106); Magnesium 1.7 mg/dL (1.6-2.6); Osmolality,Calculated 265 (275-295); Phosphorous 2.5 mg/dL (2.4-5.1); Potassium 3.8 mMol/L (3.4-5.1); Sodium 134 mMol/L (136-145); Total Protein 7.2 gm/dL (5.7-8.2); eGFR > 60 See Note
[2024-06-28 08:00] VITALS: BP 177/101; PULSE 101; RESP 18; TEMP 36.3; O2SAT 96
[2024-06-28] MEDS: HYDROmorphone INJ 2 MG/ML VIAL 1 MG IVP (08:08)
[2024-06-28] MEDS: predniSONE 5 MG TABLET 10 MG PO (08:11)
[2024-06-28] MEDS: PANTOPRAZOLE 40 MG TABLET PO (08:11)
[2024-06-28 08:13] VITALS: BP 168/104; PULSE 101
[2024-06-28] MEDS: PROPRANOLOL 10 MG TABLET PO (08:13)
[2024-06-28 08:31] LABS: C-Reactive Protein 6.6 mg/dL (0.0-0.9)
[2024-06-28 08:37] LABS: Sed Rate (ESR) 65 mm/hr (0-30)
--- NOTE | 2024-06-28 09:01 | PC.SS ---
Late note 06-27-24: SS met with patient regarding her d/c plan.? Pt is alert/oriented.? Pt was admitted for Acute Pancreatitis.? Pt confirmed demographic and contact information is correct on facesheet.? Pt resides alone.? Pt ambulates independently without assistance or DME.? Pt is ok with all ADLs.? Pt states she utilizes O2 at home from [facility].? Pt has portable O2.? Patient?s pharmacy of choice is [facility] [address] Pt named her son, Johnathon Fofana medical decision maker if she is unable.? SS provided verbal d/c options for home or SNF.? Patient?s choice is to return home upon d/c.? Pt states she has an advance directive.? Pt states not diabetic and is not on dialysis.? Pt states she followed up with PCP 2 weeks ago and her next appointment is next Monday. D/C plan:? Return home Next of Kin:? Johnathon Fofana, son, phone#[phone] PCP:? Dr. Daniel Milligan Address:? Correct on facesheet
[2024-06-28 12:00] VITALS: BP 151/91; PULSE 89; RESP 19; TEMP 36.7; O2SAT 93
--- NOTE | 2024-06-28 16:22 | ESDS_ITS ---
<Statement entered by Britney Fink DO - 06/29/24 08:37> I, Britney Fink DO, attest that I was physically present for the quintana portions of the service and evaluated the patient with the resident and I reviewed and discussed the case with the resident and agree with the resident's findings and plans of care as documented above Planned Discharge Date 06/28/24 DS: Providers Provider Date of admission: 06/26/24 17:37 Primary care physician: Daniel Milligan MD Admitting Provider: Britney Fink DO Attending Provider on Admission: Britney Fink DO Attending Provider on DC: An Spear MD Discharging Provider: An Spear MD DS: Diagnosis Problem List Completed Was Problem List Reviewed/Reconciled?: Yes Hospital Course Hospital Course Hospital course: The patient is a 68-year-old female with a previous medical history of hypertension, rheumatoid arthritis, fibromyalgia, asthma who came to the ED due to epigastric pain and 1 episode of vomiting without blood. In the ED she was hemodynamic dynamically stable, saturated well on room air. Labs showed leukocytosis 11.9, hemoglobin 12.8, normal kidney function test, normal transaminases, normal T. bili, normal triglycerides. C-reactive protein was 3.8. Abdomen pelvis CT showed acute pancreatitis, negative for pseudocyst. EKG showed sinus rhythm. Gallbladder ultrasound was negative for cholelithiasis, cholecystitis, positive for moderate fatty liver. Patient was admitted for acute pancreatitis treatment and management. She was started on intensive fluid resuscitation and pain control medications, montelukast and duloxetine were held due to concerns of side effects of acute pancreatitis. She was started on clear liquid diet, was able to tolerated and was advanced. Her epigastric pain has resolved, she was able to pass gases. THIEN panel, IgG4 antibodies were ordered, pending. She was seen and examined by the bedside there was medically cleared for discharge home with recommendations. Hospital diagnoses: #Acute pancreatitis #Hypertension #Chronic pain #Asthma #Rheumatoid arthritis Discharge instructions: - Please follow-up with your PCP in 1-2 weeks - Follow up with THIEN panel, IgG4 test results with your PCP and manager document control - Stop taking Singular until you follow up with primary care due to possible side effect of acute pancreatitis - Please refrain from eating fried, fatty food, alcohol intake - Continue with you other medications as prescribed - If your symptoms has worsened, go to the ED or [facility] Plan of care discussed with attending Dr. Fink and PGY-[address] Macdonald. An Spear MD, PGY 1. Time Spent with Patient Time attestation: Total time spent providing and/or coordinating discharge services: Time spent: Greater than 30 minutes Exam Vital Signs Temp Pulse Resp BP Pulse Ox O2 Del Method O2 Flow Rate 98.1 F 89 19 151/91 H 93 L Nasal Cannula 2 06/28/24 12:00 06/28/24 12:00 06/28/24 12:00 06/28/24 12:00 06/28/24 12:00 06/28/24 12:06/28/24 12:00 Narrative Exam Physical Exam General: Awake and in no acute distress. Conversational and non-toxic appearing. HEENT: Normocephalic, atraumatic, mucous membranes moist. Heart: Regular rate and rhythm, no murmurs. Lungs: Clear to auscultation with no wheezing or crackles. Abdomen: Soft, mildly distended, nontender. Positive bowel sounds. ?No guarding or rebound tenderness. Neurologic: Alert and oriented x3, no gross neurological deficit, and patient able to move all 4 extremities. Extremities: No edema. Skin:Tibial ecchymoses. Bilateral tibial excoriations. Discharge Plan Plan Patient Disposition: HOME (Self Care) Patient condition on transfer: Stable Care Plan Goals: Discharge instructions: - Please follow-up with your PCP in 1-2 weeks - Follow up with THIEN panel, IgG4 test results with your PCP and manager document control - Stop taking Singular until you follow up with primary care due to possible side effect of acute pancreatitis - Please refrain from eating fried, fatty food, alcohol intake - Continue with you other medications as prescribed - If your symptoms has worsened, go to the ED or [facility] Prescriptions/Referrals Prescriptions/Med Rec: Continued alprazolam [Xanax] 1 MG tablet 0.5 mg PO DAILY Qty: 0 fluticasone propion-salmeterol [Advair HFA] 45-21 mcg/actuation Hfa Aerosol Inhaler 2 puff INHALATION QDAY Qty: 0 metoprolol succinate 25 mg Tablet Extended Release 24 Hr 12.5 mg PO QDAY albuterol sulfate [ProAir HFA] 90 mcg/actuation Hfa Aerosol Inhaler 1 puff INHALATION Q4H duloxetine [Cymbalta] 60 mg Capsule,Delayed Release(Dr/Ec) 60 mg PO QDAY acetaminophen [Tylenol 8 Hour] 650 mg Tablet Extended Release 650 mg PO Q8H omeprazole 20 mg Tablet,Delayed Release (Dr/Ec) 20 mg PO BID tramadol 50 mg tablet 50 mg PO QID multivitamin Tablet 1 tab PO QDAY ascorbic acid (vitamin C) [Vitamin C] 1,000 mg Tablet 1 g PO QDAY magnesium 500 mg Tablet 500 mg PO QDAY zinc 50 mg Tablet 50 mg PO QDAY Prebiotic Fiber 2 gram Tablet,Chewable 2 g PO QDAY propranolol 10 mg tablet 10 mg PO AC Patient Comments: TAKE 1-2 TABLETS BY MOUTH EVERY DAY famotidine 20 mg tablet 20 mg PO BID Patient Comments: TAKE 1 TABLET BY MOUTH TWICE A DAY prednisone 10 mg tablet 10 mg PO DAILY Patient Comments: TAKE 1 TABLET BY MOUTH EVERY DAY meclizine 25 mg tablet 25 mg PO BID Discontinued montelukast 10 mg tablet 10 mg PO DAILY Referrals: Daniel Milligan MD [Primary Care Provider] - Patient/Caregiver Discharge Instructions Education Materials: Abdominal Pain, Understanding Pancreatitis Print Language: Kittitian Stand Alone Forms: Noemi Award Info., Patient Portal Info Letter Discharge Order Discharge Orders: Discharge (Routine); Ordered 06/28/24 Ordered By: López Macdonald Quality Discharge Quality Measures VTE prophylaxis
== END 2024-06-28 12:45 | disposition home or self-care (01) | DRG 439 ==
LOC: SERX 16:59 → SERHOLD 18:19 → S3SX 06-27 00:20
PROVIDERS: Nurse Practitioner Family; Student in an Organized Health Care Education/Training Program; Admitting Provider Internal Medicine; Emergency Provider Family Medicine; PCP Internal Medicine; Visit Provider Internal Medicine
DX: K85.90 Acute pancreatitis without necrosis or infection, unspecified (principal); E22.2 Syndrome of inappropriate secretion of antidiuretic hormone; G89.29 Other chronic pain; I10 Essential (primary) hypertension; J45.909 Unspecified asthma, uncomplicated; M06.9 Rheumatoid arthritis, unspecified; M79.7 Fibromyalgia; M85.80 Other specified disorders of bone density and structure, unspecified site; K44.9 Diaphragmatic hernia without obstruction or gangrene; F32.A Depression, unspecified; R25.1 Tremor, unspecified; M54.9 Dorsalgia, unspecified; F41.9 Anxiety disorder, unspecified; K76.0 Fatty (change of) liver, not elsewhere classified; Z90.710 Acquired absence of both cervix and uterus; Z96.642 Presence of left artificial hip joint; Z79.899 Other long term (current) drug therapy
CPT/HCPCS: 36415; 74177; 76705; 80053; 80061; 80069; 81001; 83690; 83735; 84100; 85025; 85610; 85652; 85730; 86038; 86140; 93005; 96372; 96374; 96375; 99285; A4649; J1643; J1885; J2405; J3490; J7030; J7512; Q9967; A9270

== ENCOUNTER 2024-09-27 10:55 | Emergency (ER) | payer MEDICARE, BC, SELFPAY ==
[2024-09-27 11:08] VITALS: BP 126/84; PULSE 85; RESP 18; TEMP 37.2; O2SAT 95; BMI 23.5
--- NOTE | 2024-09-27 11:20 | XR_ITS ---
Examination: Abdomen sonogram, Limited Date and time of exam: September 27, 2024 1142 hours INDICATIONS: Onset right upper abdominal pain beginning 5 days ago Technique: Real-time krishna scale transabdominal sonographic images of the upper abdomen obtained. Findings: Normal gallbladder Normal common bile duct 0.2 cm Pancreatic head 2.2 cm Liver 15.5 cm fatty infiltration no focal liver lesions Normal hepatopedal portal venous flow Patent IVC IMPRESSION: Normal gallbladder Fatty liver no focal liver lesions
--- NOTE | 2024-09-27 11:20 | EKG_ITS ---
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
--- NOTE | 2024-09-27 11:20 | XR_ITS ---
Examination: PA lateral chest 2 views TECHNIQUE: Upright PA lateral chest 2 views Date and time: September 27, 2024 1213 hours Comparison August 23, 2022 INDICATIONS: Chest pain weakness beginning 2 weeks ago. FINDINGS: Large retrocardiac gastric hernia. Normal heart size No lobar pneumonia or pulmonary edema Old upper left-sided rib fractures IMPRESSION: No lobar pneumonia or pulmonary edema
--- NOTE | 2024-09-27 11:21 | PD.EDRME ---
Rapid Medical Screening Exam RME Arrival date/time: 09/27/24 10:55 69-year-old female with history of pancreatitis presents emergency department today for complaint of right upper abdominal pain Chief Complaint: Abdominal Pain Vital signs: Vital Signs Temperature 99.0 F 09/27/24 11:08 Pulse Rate 85 09/27/24 11:08 Respiratory Rate 18 09/27/24 11:08 Blood Pressure 126/84 09/27/24 11:08 Pulse Oximetry (%) 95 09/27/24 11:08 Oxygen Delivery Method Room Air 09/27/24 11:08
[2024-09-27 12:30] LABS: Basophils # (Auto) 0.1 Thou/mm3 (0.0-0.2); Basophils % (Auto) 1 % (0-2.5); Eosinophils # (Auto) 0.1 Thou/mm3 (0.0-0.5); Eosinophils % (Auto) 1 % (0-10); Hematocrit 32.3 % (36.0-46.0); Hemoglobin 11.1 g/dL (12.0-16.0); Immature Granulocytes % (Auto) 1 % (0-0); Immature Granulocytes Auto 0.09 Thou/mm3 (0.00-0.00); Lymphocytes # (Auto) 2.2 Thou/mm3 (1.0-4.8); Lymphocytes % (Auto) 17 % (10-50); Mean Corpuscular HGB Conc 34.4 g/dl (31.0-37.0); Mean Corpuscular Hemoglobin 32.3 pg (25.0-35.0); Mean Corpuscular Volume 94 fL (80-100); Monocytes # (Auto) 1.2 Thou/mm3 (0.0-0.8); Monocytes % (Auto) 10 % (0-12); Neutrophils % (Auto) 71 % (37-80); Nucleated Red Blood Cell % 0 /100 WBC (0); Platelet Count 349 Thou/mm3 (140-440); RDW Standard Deviation 45.1 fL (36.4-46.3); Red Blood Count 3.44 Miln/mm3 (4.00-5.20); White Blood Count 12.7 Thou/mm3 (3.6-11.0)
[2024-09-27 12:54] LABS: Alanine Aminotransferase 50 U/L (10-49); Albumin, Serum 3.7 gm/dL (3.4-4.8); Albumin/Globulin Ratio 1.1 (1.2-2.2); Alkaline Phosphatase 109 U/L (46-116); Anion Gap 5 (7-16); Aspartate Amino Transferase 125 U/L (0-34); BUN/Creatinine Ratio 20 Ratio (12-20); Bilirubin,Total 0.6 mg/dL (0.3-1.2); Blood Urea Nitrogen 16 mg/dL (9-23); Calcium 9.2 mg/dL (8.3-10.6); Calcium (Corrected) 9.4 mg/dL (8.5-10.1); Carbon Dioxide 30.6 mMol/L (20.0-31.0); Chloride 93 mMol/L (98-107); Creatinine (Component) 0.8 mg/dL (0.6-1.3); Estimated Creatinine Clearance 64.5 mL/min (>60); Globulin 3.5 gm/dL (2.3-3.5); Glucose 110 mg/dL (74-106); Lipase 20 U/L (12-53); Osmolality,Calculated 261 (275-295); Potassium 4.8 mMol/L (3.4-5.1); Sodium 129 mMol/L (136-145); Total Protein 7.2 gm/dL (5.7-8.2); Troponin I < 0.020 ng/mL (0.0-0.045); eGFR > 60 See Note
--- NOTE | 2024-09-27 16:05 | PD.EDABDPN ---
ED Abdominal Pain RME/HPI General Chief Complaint: Abdominal Pain Stated complaint: Abdominal pain since yesterday Time seen by provider: 09/27/24 14:57 Arrival date/time: 09/27/24 10:55 RME / HPI RME / HPI narrative: 69-year-old female with history of pancreatitis presents emergency department today for complaint of right upper abdominal pain. Onset of symptoms for the last 2 days, last night it was worse but this morning it was better and at the time of my evaluation patient pain is less. No vomiting noted no fever noted patient is worried because she had a history of pancreatitis in the past. Related Data Home Medications ?Medication ?Instructions ?Recorded ?Confirmed alprazolam 1 mg tablet (Xanax) 0.5 mg PO DAILY #0 tabs 01/15/15 06/27/24 fluticasone propionate 45 2 puff inhalation QDAY #0 puffs 03/30/16 09/30/22 mcg-salmeterol 21 mcg/actuation HFA inhaler (Advair HFA) albuterol sulfate 90 mcg/actuation 1 puff inhalation Q4H 09/21/18 09/30/22 aerosol inhaler (ProAir HFA) duloxetine 60 mg capsule,delayed 60 mg PO QDAY 09/21/18 06/27/24 release (Cymbalta) metoprolol succinate 25 mg 12.5 mg PO QDAY 09/21/18 09/30/22 tablet,extended release 24 hr acetaminophen 650 mg 650 mg PO Q8H 10/27/20 09/30/22 tablet,extended release (Tylenol 8 Hour) omeprazole 20 mg tablet,delayed 20 mg PO BID 10/27/20 09/30/22 release tramadol 50 mg tablet 50 mg PO QID 08/08/22 06/27/24 ascorbic acid (vitamin C) 1,000 mg 1 g PO QDAY 09/30/22 09/30/22 tablet (Vitamin C) inulin 2 gram chewable tablet 2 g PO QDAY 09/30/22 09/30/22 (Prebiotic Fiber) magnesium 500 mg tablet 500 mg PO QDAY 09/30/22 09/30/22 multivitamin 1 tab PO QDAY 09/30/22 09/30/22 zinc 50 mg tablet 50 mg PO QDAY 09/30/22 09/30/22 famotidine 20 mg tablet 20 mg PO BID 06/27/24 06/27/24 meclizine 25 mg tablet 25 mg PO BID 06/27/24 06/27/24 prednisone 10 mg tablet 10 mg PO DAILY 06/27/24 06/27/24 propranolol 10 mg tablet 10 mg PO AC 06/27/24 06/27/24 Allergies Allergy/AdvReac Type Severity Reaction Status Date / Time CLAUDE Inhibitors Allergy Severe Anaphylaxis Verified 09/27/24 11:01 bacitracin (From Neosporin Allergy Redness of Verified 09/27/24 11:01 ([id number])) Skin morphine Allergy SEVERE Verified 09/27/24 11:01 ITCHING neomycin (From Neosporin Allergy Redness of Verified 09/27/24 11:01 ([id number])) Skin polymyxin B (From Neosporin Allergy Redness of Verified 09/27/24 11:01 ([id number])) Skin Review of Systems Review of Systems Narrative Review of Systems: Review of system reviewed and within normal limits except mentioned in HPI ED Exam Narrative Physical exam: VITAL SIGNS: Reviewed. GENERAL APPEARANCE: Alert and interactive, follows commands, no acute distress, HEAD AND FACE: Non-traumatic. ENT: PERRL, pink conjunctivitis, eyelid no trauma, Mucous membrane moist. NECK: Supple, nontender, no nuchal rigidity. CHEST: No tenderness, no crepitus, no paradoxical movement, no retractions. LUNGS: Clear, well ventilated, symmetric, no rales, no wheezing, no ronchi, no stridor, good breath sounds bilaterally. HEART: Regular rate, regular rhythm, no murmur, no gallops. ABDOMEN: Soft, positive bowel sounds, nondistended, no guarding, right upper quadrant tenderness, no rebound, no masses, RECTAL: Deferred. GENITAL: Deferred. NEUROLOGICAL: Gross motor function intact sensory function intact, Appropriate for age. MUSCULOSKELETAL: low back nontender, full range of motion. EXTREMITIES: Nontender, full range of motion. SKIN: Color pink, dry, no rash, no lacerations, no abrasions, no contusions. LYMPHATICS: Deferred. Course Quality Measures none Orders Category Date Time Status EKG (ED ONLY) *Do not use* NOW Care 09/27/24 11:20 Completed EKG (ED Only) Stat Exams 09/27/24 11:20 Draft US gall bladder Stat Exams 09/27/24 11:20 Completed XR chest 2V Stat Exams 09/27/24 11:20 Completed CBC Stat Lab 09/27/24 12:22 Completed Comprehensive Metabolic Panel Stat Lab 09/27/24 12:22 Completed Lipase Stat Lab 09/27/24 12:22 Completed Troponin I Stat Lab 09/27/24 12:22 Completed UA, C/S IF [Urinalysis, C/S if Indicated] Stat Lab 09/27/24 11:20 Ordered Vital Signs Vital signs: Vital Signs Temperature 99.0 F 09/27/24 11:08 Pulse Rate 85 09/27/24 11:08 Respiratory Rate 18 09/27/24 11:08 Blood Pressure 126/84 09/27/24 11:08 Pulse Oximetry (%) 95 09/27/24 11:08 Oxygen Delivery Method Room Air 09/27/24 11:08 Abdominal Pain MDM [facility] Narrative [facility] Narrative:: Rhys 69-year-old female with history of pancreatitis presents emergency department today for complaint of right upper abdominal pain. Onset of symptoms for the last 2 days, last night it was worse but this morning it was better and at the time of my evaluation patient pain is less. No vomiting noted no fever noted patient is worried because she had a history of pancreatitis in the past. Patient lipase today was noted to be normal. Ultrasound the gallbladder came back with no acute pathology. Chest x-ray also came back with retrocardiac hernia otherwise unremarkable. The rest of the labs is unremarkable except for slight leukocytosis. Prior to discharge patient's abdominal pain is almost gone. Patient is tolerating p.o. fluids. Patient data External records reviewed:: None Clinical information provided by:: patient Social determinants that could affect healthcare access:: none Patient has the following chronic illnesses:: Rheumatoid arthritis history of pancreatitis in the past How is presenting disease/condition affected by chronic disease/condition?: exacerbated by Evaluation data The following diagnostics were reviewed and interpreted by me:: lab results and radiology exam(s) Lab and/or radiology exams considered but not ordered:: None Interpretation Summary: See results in MDM EKG showed as interpreted by me as normal sinus rhythm, ventricular rate of 84 bpm, no ST segment elevation or depression noted. Medications / Prescriptions Medications or Prescriptions considered but not ordered:: None Medication administrations:: None Consultations Consultation(s) initiated? (list below): No Diagnosis Differential diagnosis abdominal pain: abdominal pain Most likely diagnosis given after review of the tests above:: Right upper quadrant pain, history of pancreatitis Admission Indicated Admission indicated?: indicated Admission Request Was there a request for admission?: No Disposition Plan Disposition Plan: Discharge Discharge Attestation Discharge Attestation: The patient and all family members were given an opportunity to ask questions and understood the discharge instructions. Discharge instructions specifically effects, indications for sooner follow up or return to the emergency department, and the expected course of current diagnosis. Patient condition: Stable Discharge Plan Plan Patient Disposition: HOME (Self Care) Discharge Disposition comment: Stable Prescriptions/Referrals Prescriptions/Med Rec: No Action alprazolam [Xanax] 1 MG tablet 0.5 mg PO DAILY Qty: 0 fluticasone propion-salmeterol [Advair HFA] 45-21 mcg/actuation Hfa Aerosol Inhaler 2 puff INHALATION QDAY Qty: 0 metoprolol succinate 25 mg Tablet Extended Release 24 Hr 12.5 mg PO QDAY albuterol sulfate [ProAir HFA] 90 mcg/actuation Hfa Aerosol Inhaler 1 puff INHALATION Q4H duloxetine [Cymbalta] 60 mg Capsule,Delayed Release(Dr/Ec) 60 mg PO QDAY acetaminophen [Tylenol 8 Hour] 650 mg Tablet Extended Release 650 mg PO Q8H omeprazole 20 mg Tablet,Delayed Release (Dr/Ec) 20 mg PO BID tramadol 50 mg tablet 50 mg PO QID multivitamin Tablet 1 tab PO QDAY ascorbic acid (vitamin C) [Vitamin C] 1,000 mg Tablet 1 g PO QDAY magnesium 500 mg Tablet 500 mg PO QDAY zinc 50 mg Tablet 50 mg PO QDAY Prebiotic Fiber 2 gram Tablet,Chewable 2 g PO QDAY propranolol 10 mg tablet 10 mg PO AC Patient Comments: TAKE 1-2 TABLETS BY MOUTH EVERY DAY famotidine 20 mg tablet 20 mg PO BID Patient Comments: TAKE 1 TABLET BY MOUTH TWICE A DAY prednisone 10 mg tablet 10 mg PO DAILY Patient Comments: TAKE 1 TABLET BY MOUTH EVERY DAY meclizine 25 mg tablet 25 mg PO BID Referrals: Daniel Milligan MD [Primary Care Provider] - In 1 week Problem List Clinical Impression: Abdominal pain, Hx of rheumatoid arthritis Patient/Caregiver Discharge Instructions Discharge Activity: activity as tolerated Education Materials: Abdominal Pain Additional Instructions: Thank you for the opportunity for serving you today. You are stable for discharged . You are advised to: Follow-up with your PCP in 1 to 2 days Return to ED for worsening of symptoms Increase oral fluids Continue taking your tramadol as needed Print Language: Ukrainian Stand Alone Forms: Noemi Award Info., Patient Portal Info Letter PA/HARNESS INSPECTOR Supervising Physician PA/HARNESS INSPECTOR Supervising Physician: MD Dalia
[2024-09-27 17:18] VITALS: BP 128/86; PULSE 86; RESP 18; TEMP 37; O2SAT 96
== END 2024-09-27 17:19 | disposition home or self-care (01) ==
PROVIDERS: Nurse Practitioner Primary Care; Emergency Provider Emergency Medicine; PCP Internal Medicine
DX: R10.11 Right upper quadrant pain (principal); M06.9 Rheumatoid arthritis, unspecified; D72.829 Elevated white blood cell count, unspecified; R07.9 Chest pain, unspecified; R53.1 Weakness
CPT/HCPCS: 36415; 71046; 76705; 80053; 81001; 83690; 84484; 85025; 93005; 99284

== ENCOUNTER 2024-09-30 05:07 | Emergency (ER) | payer MEDICARE, BC, SELFPAY ==
[2024-09-30] VITALS (11 sets, daily range): BP systolic 111–152; BP diastolic 77–98; PULSE 83–91; RESP 14–88; TEMP 36.8–36.9; O2SAT 93–99; BMI 23.5
--- NOTE | 2024-09-30 05:58 | PD.EDRME ---
Rapid Medical Screening Exam RME Arrival date/time: 09/30/24 05:07 Chief Complaint: General Adult/Misc Complain Vital signs: Vital Signs Temperature 98.4 F 09/30/24 05:40 Pulse Rate 91 09/30/24 05:40 Respiratory Rate 18 09/30/24 05:40 Blood Pressure 111/77 09/30/24 05:40 Pulse Oximetry (%) 93 L 09/30/24 05:40 Oxygen Delivery Method Room Air 09/30/24 05:40 Vital signs reviewed by provider: Yes RME Narrative: 69-year-old female presents to the ED with a complaint of right flank pain and right upper quadrant abdominal pain that has been present for the past 7 days. She has had a decreased appetite and nausea/vomiting that occurred last and Monday. She has had no nausea or vomiting since. She denies any fever or chills. She was seen here on the and had a full workup. She states she is unable to get any sleep because of the pain. She states the pain is worse for the last 2 days. She was last seen by her primary care physician 1 week ago. I have greeted and performed a focused initial assessment of this patient. A comprehensive ED assessment and evaluation of the patient, analysis of all test results, and completion of the medical decision making process will be conducted by additional ED providers.
--- NOTE | 2024-09-30 07:55 | PD.EDADULT ---
ED General RME/HPI General Chief complaint: Abdominal Pain Stated complaint: FLANK PAIN Time Seen by Provider: 09/30/24 06:18 Arrival date/time: 09/30/24 05:07 Limitations: no limitations RME / HPI RME / HPI narrative: 69-year-old female presents to the ED with a complaint of right flank pain and right upper quadrant abdominal pain that has been present for the past 7 days. She has had a decreased appetite and nausea/vomiting that occurred last and Monday. She has had no nausea or vomiting since. She denies any fever or chills. She was seen here on the and had a full workup. She states she is unable to get any sleep because of the pain. She states the pain is worse for the last 2 days. She was last seen by her primary care physician 1 week ago. I have greeted and performed a focused initial assessment of this patient. A comprehensive ED assessment and evaluation of the patient, analysis of all test results, and completion of the medical decision making process will be conducted by additional ED providers. DR. PHIPPS MAIN ED EVALUATION: 69 year old female with past medical history significant for pancreatitis, hypertension, and GERD presents to the Emergency Department with complaint of right flank pain/ right lateral rib area pain onset 7 days. No other symptoms reported at this time. Related Data Home Medications ?Medication ?Instructions ?Recorded ?Confirmed alprazolam 1 mg tablet (Xanax) 0.5 mg PO DAILY #0 tabs 01/15/15 06/27/24 fluticasone propionate 45 2 puff inhalation QDAY #0 puffs 03/30/16 09/30/22 mcg-salmeterol 21 mcg/actuation HFA inhaler (Advair HFA) albuterol sulfate 90 mcg/actuation 1 puff inhalation Q4H 09/21/18 09/30/22 aerosol inhaler (ProAir HFA) duloxetine 60 mg capsule,delayed 60 mg PO QDAY 09/21/18 06/27/24 release (Cymbalta) metoprolol succinate 25 mg 12.5 mg PO QDAY 09/21/18 09/30/22 tablet,extended release 24 hr acetaminophen 650 mg 650 mg PO Q8H 10/27/20 09/30/22 tablet,extended release (Tylenol 8 Hour) omeprazole 20 mg tablet,delayed 20 mg PO BID 10/27/20 09/30/22 release tramadol 50 mg tablet 50 mg PO QID 08/08/22 06/27/24 ascorbic acid (vitamin C) 1,000 mg 1 g PO QDAY 09/30/22 09/30/22 tablet (Vitamin C) inulin 2 gram chewable tablet 2 g PO QDAY 09/30/22 09/30/22 (Prebiotic Fiber) magnesium 500 mg tablet 500 mg PO QDAY 09/30/22 09/30/22 multivitamin 1 tab PO QDAY 09/30/22 09/30/22 zinc 50 mg tablet 50 mg PO QDAY 09/30/22 09/30/22 famotidine 20 mg tablet 20 mg PO BID 06/27/24 06/27/24 meclizine 25 mg tablet 25 mg PO BID 06/27/24 06/27/24 prednisone 10 mg tablet 10 mg PO DAILY 06/27/24 06/27/24 propranolol 10 mg tablet 10 mg PO AC 06/27/24 06/27/24 Previous Rx's ?Medication ?Instructions ?Recorded baclofen 10 mg tablet 10 mg PO BID muscle spasm #20 tabs 09/30/24 hydrocodone 5 mg-acetaminophen 325 1 tab PO BID pain #10 tabs 09/30/24 mg tablet Allergies Allergy/AdvReac Type Severity Reaction Status Date / Time CLAUDE Inhibitors Allergy Severe Anaphylaxis Verified 09/30/24 05:31 bacitracin (From Neosporin Allergy Redness of Verified 09/30/24 05:31 ([id number])) Skin morphine Allergy SEVERE Verified 09/30/24 05:31 ITCHING neomycin (From Neosporin Allergy Redness of Verified 09/30/24 05:31 ([id number])) Skin polymyxin B (From Neosporin Allergy Redness of Verified 09/30/24 05:31 ([id number])) Skin Review of Systems Review of Systems Systems Reviewed: All systems reviewed, normal except as documented Past Medical History Past Medical History NEUROLOGIC: Positive Head Trauma CARDIAC: Positive Cardiac Disorders and Hypertension RESPIRATORY: Positive Asthma, Pneumonia and Sleep Apnea GASTROINTESTINAL: Positive Gastrointestinal Disorders, Hemorrhoids and Gastroesophageal Reflux Disease GENITOURINARY: Positive Genitourinary Disorders (siadh) REPRODUCTIVE: Positive Previous Pregnancies MUSCULOSKELETAL: Positive Musculoskeletal Disorders, Arthritis, Rheumatoid Arthritis, Fibromyalgia and Fractures ENT: Positive Cataracts (x2) and Head Trauma ENDOCRINE: Positive Endocrine Disorders and Syndrome of Inappropriate Antidiuretic Hormone (SIADH) PSYCHO/SOCIAL: Positive Recreational Drug Use, Depression and Anxiety OTHER HISTORY: Positive Hospitalization, Autoimmune Disease (LUPUS), Falls and Blood Transfusions Family History FAMILY HISTORY: Positive Family Respiratory Disorders (sister asthma, brother copd), Family Cardiac Disorders (mom htn), Family Gastrointestinal Problems (everyone gerd), Family Cancer (dad prostate cancer) and Family Surgery Surgical History SURGICAL: Positive Joint Replacement (right knee and both hips), Hip Sx (BILATERAL) and Hysterectomy Social History SMOKING STATUS: Never smoker SUBSTANCE USE: does not use ALCOHOL: Never ED Exam General Limitations: Present no limitations General appearance: Present alert and in no apparent distress Head Head exam: Present atraumatic, normocephalic and normal inspection Eye Eye exam: Present normal appearance, PERRL and EOMI ENT ENT exam: Present normal exam, normal oropharynx and mucous membranes moist Neck Neck exam: Present normal inspection, full ROM and trachea midline Chest Chest inspection: Present normal inspection and symmetric chest wall rise Respiratory Respiratory exam: Present normal lung sounds bilaterally Cardiovascular Cardiovascular exam: Present regular rate, normal rhythm and normal heart sounds Abdominal Exam Abdominal exam: Present soft and normal bowel sounds; Absent tenderness, guarding or rebound Extremities Exam Extremities exam: Present normal inspection and full ROM Back Exam Back exam: Present normal inspection, tenderness (right-sided latissimus dorsi muscle tenderness, spinal right flank tenderness, myospasms ) and other Neurological Exam Neurological exam: Present alert, oriented X3 and CN II-XII intact Psychiatric Psychiatric exam: Present normal affect and normal mood Skin Skin exam: Present warm, dry, intact and normal color Course Quality Measures none Orders Category Date Time Status Proposal Manager Q4H START 00 Care 09/30/24 06:31 Completed Proposal Manager STAT Care 09/30/24 07:55 Completed Continuous Pulse Oximetry STAT Care 09/30/24 07:55 Completed Insert IV NOW Care 09/30/24 06:32 Completed Insert IV STAT Care 09/30/24 07:55 Completed NPO STAT Care 09/30/24 07:[address] abdomen pelvis wo con Stat Exams 09/30/24 07:55 Completed CBC Stat Lab 09/30/24 06:40 Completed Comprehensive Metabolic Panel Stat Lab 09/30/24 06:40 Completed Lipase Stat Lab 09/30/24 06:40 Completed Magnesium Stat Lab 09/30/24 06:40 Completed Prothrombin Time with INR Stat Lab 09/30/24 06:40 Completed Ketorolac Inj [Toradol Inj] Med 09/30/24 07:55 Discontinued 15 mg IVP X1 ONE Sodium Chloride 0.9% 1000 ml [Ns] 1,000 ml Med 09/30/24 07:55 Discontinued IV 999 mls/hr Oxygen Delivery PRN RT 09/30/24 06:31 Completed Vital Signs Vital signs: Vital Signs Temperature 98.4 F 09/30/24 05:40 Pulse Rate 91 09/30/24 05:40 Respiratory Rate 18 09/30/24 05:40 Blood Pressure 111/77 09/30/24 05:40 Pulse Oximetry (%) 93 L 09/30/24 05:40 Oxygen Delivery Method Room Air 09/30/24 05:40 Discharge Plan Plan Patient Disposition: HOME (Self Care) Patient condition on transfer: Stable Prescriptions/Referrals Prescriptions/Med Rec: New baclofen 10 mg tablet 10 mg PO BID MDD 2 Qty: 20 0RF hydrocodone-acetaminophen 5-325 mg tablet 1 tab PO BID MDD 2 Qty: 10 0RF No Action alprazolam [Xanax] 1 MG tablet 0.5 mg PO DAILY Qty: 0 fluticasone propion-salmeterol [Advair HFA] 45-21 mcg/actuation Hfa Aerosol Inhaler 2 puff INHALATION QDAY Qty: 0 metoprolol succinate 25 mg Tablet Extended Release 24 Hr 12.5 mg PO QDAY albuterol sulfate [ProAir HFA] 90 mcg/actuation Hfa Aerosol Inhaler 1 puff INHALATION Q4H duloxetine [Cymbalta] 60 mg Capsule,Delayed Release(Dr/Ec) 60 mg PO QDAY acetaminophen [Tylenol 8 Hour] 650 mg Tablet Extended Release 650 mg PO Q8H omeprazole 20 mg Tablet,Delayed Release (Dr/Ec) 20 mg PO BID tramadol 50 mg tablet 50 mg PO QID multivitamin Tablet 1 tab PO QDAY ascorbic acid (vitamin C) [Vitamin C] 1,000 mg Tablet 1 g PO QDAY magnesium 500 mg Tablet 500 mg PO QDAY zinc 50 mg Tablet 50 mg PO QDAY Prebiotic Fiber 2 gram Tablet,Chewable 2 g PO QDAY propranolol 10 mg tablet 10 mg PO AC Patient Comments: TAKE 1-2 TABLETS BY MOUTH EVERY DAY famotidine 20 mg tablet 20 mg PO BID Patient Comments: TAKE 1 TABLET BY MOUTH TWICE A DAY prednisone 10 mg tablet 10 mg PO DAILY Patient Comments: TAKE 1 TABLET BY MOUTH EVERY DAY meclizine 25 mg tablet 25 mg PO BID Referrals: Daniel Milligan MD [Primary Care Provider] - In 1 week Problem List Clinical Impression: Muscular abdominal pain in right flank, Hyponatremia Patient/Caregiver Discharge Instructions Diet Instructions: Increased fluids, Gatorade; increase salts Education Materials: ED Hyponatremia, ED Myalgias Additional Instructions: Take Tylenol 500 mg 2 tabs every 6 hours PLUS Advil 200 mg gel 2 tablets as needed for pain. Please follow-up with your primary care physician within 2-3 days. Return to the Emergency Department as needed. Print Language: Citizen [place] Stand Alone Forms: Noemi Award Info., Patient Portal Info Letter MDM Narrative MDM hospital course: Hansa Velez am scribing for and in the presence of Dr. Phipps. Clinical Information Provided by patient Medical Records Reviewed [facility] Meds/Rx Considered, not Ordered None Labs/Rad/Tests considered, not Ordered None Chronic Illness/Social Conditions Add or document further as needed: pancreatitis, hypertension, and GERD EKG EKG not done Imaging Radiology reports / interpretation(s): Procedure(s): CT abdomen pelvis wo con Accession Number(s): [id number] cc: Daniel Milligan MD; Waqar Phipps MD; Nghia Tirado MD~ Examination: CT abdomen and pelvis without contrast. Coronal 3-D reconstructions. Sagittal 2-D reconstructions. Date and time of exam:September 30, 2024 0838 hours Comparison June 26, 2024 INDICATIONS: Generalized abdominal pain today CTDI: vol (mGy): 7.58 DLP: (mGycm): 390 Technique: Axial images of the abdomen have been obtained, 3 mm slice thickness Intravenous contrast material has not been administered. Low dose protocols were performed. One or more of the following dose reduction techniques were used; automated exposure control, adjustment of the mA and/or KV according to patient size, use of iterative reconstruction technique. Findings: Large diaphragmatic hernia Liver is irregular in contour, hepatomegaly no intrahepatic biliary tract dilatation Minimal edema surrounding the pancreas No gallstones Spleen is not enlarged Prominent renal parenchymal scar formation, no renal or ureteral calculi No bowel obstruction Normal appendix No diverticulitis Detail in the pelvis is obscured by the patient's bilateral hip arthroplasties Severe osteopenia Diffuse moderate to advanced lumbar degenerative disc disease IMPRESSION: Primary hepatocellular disease, mild hepatomegaly Suspicious for mild pancreatitis Prominent bilateral renal parenchymal scar formation, no renal or ureteral calculi, no hydronephrosis Normal appendix No bowel obstruction or diverticulitis Dictated By: Nghia Tirado MD Medication Administration(s) Medication Administration History Discontinued Medications Sodium Chloride (Ns) 1,000 mls @ 999 mls/hr IV .Q1H1M ONE Stop: 09/30/24 08:55 Last Infusion: 09/30/24 10:11 Dose: Infused Documented By: Admin: 09/30/24 08:27 Dose: 999 mls/hr Documented By: MICHELLE Ketorolac Tromethamine (Ketorolac Inj 30 Mg/Ml Vial) 15 mg IVP X1 ONE Stop: 09/30/24 07:56 Last Admin: 09/30/24 08:26 Dose: 15 mg Documented By: MICHELLE Diagnosis Differential diagnosis: myospasms, muscle spasm, right-sided latissimus dorsi muscle tenderness Most likely dx, and/or detailed dx discussion: Muscular abdominal pain in right flank Hyponatremia Dispositon Disposition: Discharge Home
[2024-09-30 08:16] LABS: Basophils # (Auto) 0.1 Thou/mm3 (0.0-0.2); Basophils % (Auto) 0 % (0-2.5); Eosinophils # (Auto) 0.1 Thou/mm3 (0.0-0.5); Eosinophils % (Auto) 1 % (0-10); Hematocrit 34.4 % (36.0-46.0); Hemoglobin 11.5 g/dL (12.0-16.0); Immature Granulocytes % (Auto) 1 % (0-0); Immature Granulocytes Auto 0.15 Thou/mm3 (0.00-0.00); Lymphocytes # (Auto) 2.6 Thou/mm3 (1.0-4.8); Lymphocytes % (Auto) 19 % (10-50); Mean Corpuscular HGB Conc 33.4 g/dl (31.0-37.0); Mean Corpuscular Hemoglobin 31.9 pg (25.0-35.0); Mean Corpuscular Volume 95 fL (80-100); Monocytes # (Auto) 1.6 Thou/mm3 (0.0-0.8); Monocytes % (Auto) 12 % (0-12); Neutrophils # (Auto) 9.2 Thou/mm3 (1.8-7.7); Neutrophils % (Auto) 67 % (37-80); Nucleated Red Blood Cell % 0 /100 WBC (0); Platelet Count 422 Thou/mm3 (140-440); RDW Standard Deviation 45.8 fL (36.4-46.3); Red Blood Count 3.61 Miln/mm3 (4.00-5.20); White Blood Count 13.7 Thou/mm3 (3.6-11.0)
[2024-09-30] MEDS: KETOROLAC INJ 30 MG/ML VIAL 15 MG IVP (08:26)
[2024-09-30] MEDS: SODIUM CHLORIDE 0.9% 1000 ML 1,000 ML 999 ML IV (08:27)
[2024-09-30 08:30] LABS: INR 1.1 (0.9-1.3)
[2024-09-30 08:36] LABS: Alanine Aminotransferase 30 U/L (10-49); Alkaline Phosphatase 99 U/L (46-116); Anion Gap 10 (7-16); Aspartate Amino Transferase 19 U/L (0-34); BUN/Creatinine Ratio 21 Ratio (12-20); Bilirubin,Total 0.7 mg/dL (0.3-1.2); Blood Urea Nitrogen 19 mg/dL (9-23); Calcium 9.8 mg/dL (8.3-10.6); Calcium (Corrected) 9.8 mg/dL (8.5-10.1); Carbon Dioxide 31.3 mMol/L (20.0-31.0); Chloride 86 mMol/L (98-107); Creatinine (Component) 0.9 mg/dL (0.6-1.3); Estimated Creatinine Clearance 57.4 mL/min (>60); Glucose 89 mg/dL (74-106); Lipase 19 U/L (12-53); Magnesium 2.4 mg/dL (1.6-2.6); Osmolality,Calculated 256 (275-295); Potassium 3.9 mMol/L (3.4-5.1); Sodium 127 mMol/L (136-145); eGFR > 60 See Note
== END 2024-09-30 10:30 | disposition home or self-care (01) ==
PROVIDERS: Emergency Provider Family Medicine; PCP Internal Medicine
DX: E87.1 Hypo-osmolality and hyponatremia (principal); K76.9 Liver disease, unspecified; R16.0 Hepatomegaly, not elsewhere classified; N28.89 Other specified disorders of kidney and ureter
CPT/HCPCS: 36415; 74176; 80053; 81001; 83690; 83735; 85025; 85610; 96361; 96374; 99284; J1885; J7030

== ENCOUNTER 2024-10-30 18:50 | Emergency (ER) | payer MEDICARE, BC, SELFPAY ==
[2024-10-30 18:51] VITALS: BMI 23.3
[2024-10-30 20:07] VITALS: BP 130/86; PULSE 93; RESP 18; TEMP 37.1; O2SAT 96
[2024-10-30] MEDS: NAPROXEN 250 MG TABLET 500 MG PO (20:58)
[2024-10-30] MEDS: DIAZEPAM 5 MG TABLET PO (20:59)
--- NOTE | 2024-10-30 21:02 | EDNOTE_ITS ---
<Statement entered by Shaina Briceno MD - 10/30/24 22:22> As co-signing physician, I was present and available for consult prn. I concur with the plan and care as documented by the midlevel provider. ED Back Injury Pain RME/HPI General Chief Complaint: Back Pain/Injury Stated Complaint: BACK PAIN/SPASMS X 2 WKS; GETTING WORSE Time Seen by Provider: 10/30/24 20:47 Arrival date/time: 10/30/24 18:50 69F with history of COPD, HTN, and psych presents to ED with 2 weeks of worsening lower back pain and spasms. Patient denies fall/trauma, hematuria/dysuria, and paresthesia, and bowel/bladder incontinence. Limitations: no limitations Related Data Home Medications ?Medication ?Instructions ?Recorded ?Confirmed alprazolam 1 mg tablet (Xanax) 0.5 mg PO DAILY #0 tabs 01/15/15 06/27/24 fluticasone propionate 45 2 puff inhalation QDAY #0 pu ffs 03/30/16 09/30/22 mcg-salmeterol 21 mcg/actuation HFA inhaler (Advair HFA) albuterol sulfate 90 mcg/actuation 1 puff inhalation Q 4H 09/21/18 09/30/22 aerosol inhaler (ProAir HFA) duloxetine 60 mg capsule,delayed 60 mg PO QDAY 9 06/27/24 release (Cymbalta) metoprolol succinate 25 mg 12.5 mg PO QDAY 09/21/18 tablet,extended release 24 hr acetaminophen 650 mg 650 mg PO Q8H 10/27/2009/30 tablet,extended release (Tylenol 8 Hour) omeprazole 20 mg tablet,delayed 20 mg PO BID 10/27/20 09/30/22 release tramadol 50 mg tablet 50 mg PO QID 08/08/22 ascorbic acid (vitamin C) 1,000 mg 1 g PO QDAY 3 09/30/22 tablet (Vitamin C) inulin 2 gram chewable tablet 2 g PO QDAY 09/30/22 (Prebiotic Fiber) magnesium 500 mg tablet 500 mg PO QDAY 09/30/2209/09 multivitamin 1 tab PO QDAY 09/30/2209/30 zinc 50 mg tablet 50 mg PO QDAY 09/30/2209/30 famotidine 20 mg tablet 20 mg PO BID 06/27/24 meclizine 25 mg tablet 25 mg PO BID 06/27/24 prednisone 10 mg tablet 10 mg PO DAILY 06/27/2406/09 propranolol 10 mg tablet 10 mg PO AC 06/27/24 5 Previous Rx's ?Medication ?Instructions ?Recorded baclofen 10 mg tablet 10 mg PO BID muscle spasm #2 0 tabs 09/30/24 hydrocodone 5 mg-acetaminophen 325 1 tab PO BID pain # 10 tabs 09/30/24 mg tablet cyclobenzaprine 5 mg tablet 5 mg PO BID PRN muscle spa sm #20 10/30/24 tabs Allergies Allergy/AdvReac Type Severity Reaction Status Date / Time CLAUDE Inhibitors Allergy Severe Anaphylaxis Verified 10/30/24 18:55 bacitracin (From Neosporin Allergy Redness of Verified 10/30/24 18:55 ([id number])) Skin morphine Allergy SEVERE Verified 10/30/24 18:55 ITCHING neomycin (From Neosporin Allergy Redness of Verified 10/30/24 18:55 ([id number])) Skin polymyxin B (From Neosporin Allergy Redness of Verified 10/30/24 18:55 ([id number])) Skin Review of Systems Review of Systems Systems Reviewed: All systems reviewed, normal except as documented Constitutional Constitutional: Reports system reviewed and no additional complaints, except as documented, Denies fever(s) and Denies headache(s) ENT Ears, Nose, Mouth, and Throat: Denies disequilibrium and Denies headache(s) Cardiovascular Cardiovascular: Reports system reviewed and no additional complaints, except as documented, Denies chest pain and Denies dyspnea Respiratory Respiratory: Reports system reviewed and no additional complaints, except as documented, Denies cough and Denies dyspnea Gastrointestinal Gastrointestinal: Reports system reviewed and no additional complaints, except as documented, Denies abdominal pain, Denies nausea and Denies vomiting Musculoskeletal Musculoskeletal: Reports as per HPI, Reports back pain and Reports muscle cramps (spasms) Neurologic Neurologic: Reports system reviewed and no additional complaints, except as documented, Denies confusion, Denies disequilibrium and Denies headache(s) Psychiatric Psychiatric: Denies confusion Past Medical History Past Medical History NEUROLOGIC: Positive Head Trauma; Negative Neurological Disorders or Seizures CARDIAC: Positive Cardiac Disorders and Hypertension; Negative Congestive Heart Failure RESPIRATORY: Positive Asthma, Pneumonia and Sleep Apnea; Negative Chronic Obstructive Pulmonary Disease (COPD) GASTROINTESTINAL: Positive Gastrointestinal Disorders, Hemorrhoids and Gastroesophageal Reflux Disease; Negative Hepatitis GENITOURINARY: Positive Genitourinary Disorders (siadh); Negative Renal Disease REPRODUCTIVE: Positive Previous Pregnancies; Negative Pelvic Inflammatory Disease MUSCULOSKELETAL: Positive Musculoskeletal Disorders, Arthritis, Rheumatoid Arthritis, Fibromyalgia and Fractures; Negative Degenerative Disk Disease ENT: Positive Cataracts (x2) and Head Trauma ENDOCRINE: Positive Endocrine Disorders and Syndrome of Inappropriate Antidiuretic Hormone (SIADH); Negative Diabetes Mellitus Type 1 or Diabetes Mellitus Type 2 HEMATOLOGIC: Negative Blood Disorders, Anemia, Sickle Cell Disease or Clotting Problems PSYCHO/SOCIAL: Positive Recreational Drug Use, Depression and Anxiety OTHER HISTORY: Positive Hospitalization, Autoimmune Disease (LUPUS), Falls and Blood Transfusions; Negative Shingles, Blood Transfusion Reaction, Anesthesia Reactions, Organ Transplant, Chemotherapy, Radiation Therapy, MRSA or Cancer Family History FAMILY HISTORY: Positive Family Respiratory Disorders (sister asthma, brother copd), Family Cardiac Disorders (mom htn), Family Gastrointestinal Problems (everyone gerd), Family Cancer (dad prostate cancer) and Family Surgery; Negative Family Psychiatric Problems or Family Anesthesia Reaction Surgical History SURGICAL: Positive Joint Replacement (right knee and both hips) and Hysterectomy; Negative Cardiac Surgery, Endocrine Surgery, Abdominal Surgery, Gastric Bypass Surgery, Nephrectomy, Neurologic Surgery, Mastectomy, Lumpectomy, Tubal Ligation or Organ Transplant Social History SMOKING STATUS: Former smoker SUBSTANCE USE: does not use ED Exam General Limitations: Present no limitations General appearance: Present alert and in no apparent distress Head Head exam: Present atraumatic Eye Eye exam: Present normal appearance, PERRL and EOMI ENT ENT exam: Present normal exam, normal oropharynx and mucous membranes moist Neck Neck exam: Present normal inspection, full ROM and trachea midline Chest Chest inspection: Present normal inspection and symmetric chest wall rise Respiratory Respiratory exam: Present normal lung sounds bilaterally Cardiovascular Cardiovascular exam: Present regular rate, normal rhythm and normal heart sounds Abdominal Exam Abdominal exam: Present soft and normal bowel sounds Extremities Exam Extremities exam: Present normal inspection and full ROM Back Exam Back exam: Present normal inspection and full ROM Neurological Exam Neurological exam: Present alert, oriented X3 and CN II-XII intact Psychiatric Psychiatric exam: Present normal affect and normal mood Skin Skin exam: Present warm, dry, intact and normal color Course Quality Measures none Orders Category Date Time Status CYCLObenzaPRINE [Flexeril] Med 10/30/24 20:48 Discontinued 5 mg PO X1 ONE Diazepam [Valium] Med 10/30/24 20:48 Discontinued 5 mg PO X1 ONE Naproxen [Naprosyn] Med 10/30/24 20:49 Discontinued 500 mg PO X1 ONE Vital Signs Vital signs: Vital Signs Temperature 98.8 F 10/30/24 20:07 Pulse Rate 93 10/30/24 20:07 Respiratory Rate 18 10/30/24 20:07 Blood Pressure 130/86 H 10/30/24 20:07 Pulse Oximetry (%) 96 10/30/24 20:07 Oxygen Delivery Method Room Air 10/30/24 20:07 O2 at 96% on RA and WNLs Back Pain / Injury MDM Narrative MDM Narrative:: 69F with history of COPD, HTN, and psych presents to ED with 2 weeks of worsening lower back pain and spasms. Patient denies fall/trauma, hematuria/dysuria, and paresthesia, and bowel/bladder incontinence. Physical exam reveals uncomfortable-looking female. Patient is afebrile and alert. Meds and ip counsel given. Patient data External records reviewed:: [facility] previous records Clinical information provided by:: patient Social determinants that could affect healthcare access:: mental health Patient has the following chronic illnesses:: COPD, HTN, and psych How is presenting disease/condition affected by chronic disease/condition?: exacerbated by Evaluation data The following diagnostics were reviewed and interpreted by me:: other (specify) (none) Lab and/or radiology exams considered but not ordered:: not ordered Interpretation Summary: above Medications / Prescriptions Medications or Prescriptions considered but not ordered:: ordered Medication administrations:: Medication Administration History Discontinued Medications Cyclobenzaprine HCl (Cyclobenzaprine 5 Mg Tablet) 5 mg PO X1 ONE Stop: 10/30/24 20:49 Last Admin: 10/30/24 20:58 Dose: 5 mg Documented By: JORGE L Diazepam (Diazepam 5 Mg Tablet) 5 mg PO X1 ONE Stop: 10/30/24 20:49 Last Admin: 10/30/24 20:59 Dose: 5 mg Documented By: JORGE L Naproxen (Naproxen 250 Mg Tablet) 500 mg PO X1 ONE Stop: 10/30/24 20:50 Last Admin: 10/30/24 20:58 Dose: 500 mg Documented By: MF above Consultations Consultation(s) initiated? (list below): No Diagnosis Differential diagnosis back pain/injury: lumbar radiculopathy, sciatica, strain of lumbar region, renal colic, pyelonephritis, thoracic back pain, AAA, discitis and other (low back muscle spasms) Most likely diagnosis given after review of the tests above:: low back muscle spasms Admission Indicated Admission indicated?: not indicated Admission Request Was there a request for admission?: No Disposition Plan Disposition Plan: Discharge Discharge Attestation Discharge Attestation: The patient and all family members were given an opportunity to ask questions and understood the discharge instructions. Discharge instructions specifically effects, indications for sooner follow up or return to the emergency department, and the expected course of current diagnosis. Patient condition: Stable Discharge Plan Plan Patient Disposition: HOME (Self Care) Discharge Disposition comment: Stable Prescriptions/Referrals Prescriptions/Med Rec: New cyclobenzaprine 5 mg tablet 5 mg PO BID PRN (Reason: muscle spasm) Qty: 20 0RF No Action alprazolam [Xanax] 1 MG tablet 0.5 mg PO DAILY Qty: 0 fluticasone propion-salmeterol [Advair HFA] 45-21 mcg/actuation Hfa Aerosol Inhaler 2 puff INHALATION QDAY Qty: 0 metoprolol succinate 25 mg Tablet Extended Release 24 Hr 12.5 mg PO QDAY albuterol sulfate [ProAir HFA] 90 mcg/actuation Hfa Aerosol Inhaler 1 puff INHALATION Q4H duloxetine [Cymbalta] 60 mg Capsule,Delayed Release(Dr/Ec) 60 mg PO QDAY acetaminophen [Tylenol 8 Hour] 650 mg Tablet Extended Release 650 mg PO Q8H omeprazole 20 mg Tablet,Delayed Release (Dr/Ec) 20 mg PO BID tramadol 50 mg tablet 50 mg PO QID multivitamin Tablet 1 tab PO QDAY ascorbic acid (vitamin C) [Vitamin C] 1,000 mg Tablet 1 g PO QDAY magnesium 500 mg Tablet 500 mg PO QDAY zinc 50 mg Tablet 50 mg PO QDAY Prebiotic Fiber 2 gram Tablet,Chewable 2 g PO QDAY propranolol 10 mg tablet 10 mg PO AC Patient Comments: TAKE 1-2 TABLETS BY MOUTH EVERY DAY famotidine 20 mg tablet 20 mg PO BID Patient Comments: TAKE 1 TABLET BY MOUTH TWICE A DAY prednisone 10 mg tablet 10 mg PO DAILY Patient Comments: TAKE 1 TABLET BY MOUTH EVERY DAY meclizine 25 mg tablet 25 mg PO BID baclofen 10 mg tablet 10 mg PO BID MDD 2 Qty: 20 0RF hydrocodone-acetaminophen 5-325 mg tablet 1 tab PO BID MDD 2 Qty: 10 0RF Problem List Clinical Impression: Spasm of muscle of lower back Patient/Caregiver Discharge Instructions Education Materials: ED Back Spasm, No Trauma Additional Instructions: Please follow-up with PCP within 24-48 hours and return immediately if symptoms worsen. If problem persists, recommend outpatient PT and/or MRI follow-up. In the meantime, rest, use ice/heat, and/or compression. Print Language: Macedonian Stand Alone Forms: Patient Portal Info Letter D[facility]/LI Supervising Physician D[facility] Supervising Physician: Dr. Briceno
== END 2024-10-30 21:05 | disposition home or self-care (01) ==
LOC: SERX 21:04
PROVIDERS: Emergency Provider Emergency Medicine; PCP Internal Medicine
DX: M62.830 Muscle spasm of back (principal)
CPT/HCPCS: 99283; A9270

== ENCOUNTER 2024-11-02 15:51 | Emergency (ER) | payer MEDICARE, BC, SELFPAY ==
[2024-11-02] VITALS (18 sets, daily range): BP systolic 139–182; BP diastolic 93–123; PULSE 100–116; RESP 12–22; TEMP 36.7–37.2; O2SAT 93–98; BMI 25.0
--- NOTE | 2024-11-02 16:05 | PD.EDSOB ---
ED SOB =RME/HPI General Chief Complaint: Shortness of Breath/Dyspnea Stated Complaint: DIFFICULTY BREATHING Time Seen by Provider: 11/02/24 16:00 Arrival date/time: 11/02/24 15:51 Limitations: no limitations RME / HPI RME / HPI Narrative: DR. GANDARA MAIN ED EVALUATION: 69-year-old female with past medical history of sleep apnea, asthma, pancreatitis, hypertension, and GERD presents to the Emergency Department BIBA with complaint of shortness of breath. Patient reports onset of shortness of breath today with a two-week history of cough, congestion, and green sputum production. She also endorses new chest discomfort today, describing it as pain when she breathes. On EMS arrival, oxygen saturation was 88?89% on room air, improving to 98% on 3?4 L/min oxygen. No reported fever or chills. Related Data Home Medications ?Medication ?Instructions ?Recorded ?Confirmed alprazolam 1 mg tablet (Xanax) 0.5 mg PO DAILY #0 tabs 01/15/15 06/27/24 fluticasone propionate 45 2 puff inhalation QDAY #0 puffs 03/30/16 09/30/22 mcg-salmeterol 21 mcg/actuation HFA inhaler (Advair HFA) albuterol sulfate 90 mcg/actuation 1 puff inhalation Q4H 09/21/18 09/30/22 aerosol inhaler (ProAir HFA) duloxetine 60 mg capsule,delayed 60 mg PO QDAY 09/21/18 06/27/24 release (Cymbalta) metoprolol succinate 25 mg 12.5 mg PO QDAY 09/21/18 09/30/22 tablet,extended release 24 hr acetaminophen 650 mg 650 mg PO Q8H 10/27/20 09/30/22 tablet,extended release (Tylenol 8 Hour) omeprazole 20 mg tablet,delayed 20 mg PO BID 10/27/20 09/30/22 release tramadol 50 mg tablet 50 mg PO QID 08/08/22 06/27/24 ascorbic acid (vitamin C) 1,000 mg 1 g PO QDAY 09/30/22 09/30/22 tablet (Vitamin C) inulin 2 gram chewable tablet 2 g PO QDAY 09/30/22 09/30/22 (Prebiotic Fiber) magnesium 500 mg tablet 500 mg PO QDAY 09/30/22 09/30/22 multivitamin 1 tab PO QDAY 09/30/22 09/30/22 zinc 50 mg tablet 50 mg PO QDAY 09/30/22 09/30/22 famotidine 20 mg tablet 20 mg PO BID 06/27/24 06/27/24 meclizine 25 mg tablet 25 mg PO BID 06/27/24 06/27/24 prednisone 10 mg tablet 10 mg PO DAILY 06/27/24 06/27/24 propranolol 10 mg tablet 10 mg PO AC 06/27/24 06/27/24 Previous Rx's ?Medication ?Instructions ?Recorded baclofen 10 mg tablet 10 mg PO BID muscle spasm #20 tabs 09/30/24 hydrocodone 5 mg-acetaminophen 325 1 tab PO BID pain #10 tabs 09/30/24 mg tablet cyclobenzaprine 5 mg tablet 5 mg PO BID PRN muscle spasm #20 10/30/24 tabs Allergies Allergy/AdvReac Type Severity Reaction Status Date / Time CLAUDE Inhibitors Allergy Severe Anaphylaxis Verified 10/30/24 18:55 bacitracin (From Neosporin Allergy Redness of Verified 10/30/24 18:55 ([id number])) Skin morphine Allergy SEVERE Verified 10/30/24 18:55 ITCHING neomycin (From Neosporin Allergy Redness of Verified 10/30/24 18:55 ([id number])) Skin polymyxin B (From Neosporin Allergy Redness of Verified 10/30/24 18:55 ([id number])) Skin Review of Systems Review of Systems Systems Reviewed: All systems reviewed, normal except as documented Past Medical History Past Medical History NEUROLOGIC: Positive Head Trauma CARDIAC: Positive Cardiac Disorders and Hypertension RESPIRATORY: Positive Asthma, Pneumonia and Sleep Apnea GASTROINTESTINAL: Positive Gastrointestinal Disorders, Hemorrhoids and Gastroesophageal Reflux Disease GENITOURINARY: Positive Genitourinary Disorders (siadh) REPRODUCTIVE: Positive Previous Pregnancies MUSCULOSKELETAL: Positive Musculoskeletal Disorders, Arthritis, Rheumatoid Arthritis, Fibromyalgia and Fractures ENT: Positive Cataracts (x2) and Head Trauma ENDOCRINE: Positive Endocrine Disorders and Syndrome of Inappropriate Antidiuretic Hormone (SIADH) PSYCHO/SOCIAL: Positive Recreational Drug Use, Depression and Anxiety OTHER HISTORY: Positive Hospitalization, Autoimmune Disease (LUPUS), Falls and Blood Transfusions Family History FAMILY HISTORY: Positive Family Respiratory Disorders (sister asthma, brother copd), Family Cardiac Disorders (mom htn), Family Gastrointestinal Problems (everyone gerd), Family Cancer (dad prostate cancer) and Family Surgery Surgical History SURGICAL: Positive Joint Replacement (right knee and both hips), Hip Sx (BILATERAL) and Hysterectomy Social History SMOKING STATUS: Never smoker SUBSTANCE USE: does not use ALCOHOL: Never ED Exam General Limitations: Present no limitations General appearance: Present alert and anxious Head Head exam: Present atraumatic, normocephalic and normal inspection Eye Eye exam: Present normal appearance, PERRL and EOMI ENT ENT exam: Present normal exam, normal oropharynx and mucous membranes moist Neck Neck exam: Present normal inspection, full ROM and trachea midline Chest Chest inspection: Present normal inspection and symmetric chest wall rise Respiratory Respiratory exam: Present normal lung sounds bilaterally and other (pain with inspiration) Cardiovascular Cardiovascular exam: Present regular rate, normal rhythm and normal heart sounds Abdominal Exam Abdominal exam: Present soft, normal bowel sounds and other (complains of epigastric pain but abdomen is soft) Extremities Exam Extremities exam: Present normal inspection and full ROM Back Exam Back exam: Present normal inspection and full ROM Neurological Exam Neurological exam: Present alert, oriented X3 and CN II-XII intact Psychiatric Psychiatric exam: Present normal affect and normal mood Skin Skin exam: Present warm, dry, intact and normal color Course Quality Measures none Orders Category Date Time Status Bedside COVID-19 Antigen Test NOW Care 11/02/24 16:09 Active Bedside Influenza A&B Antigen Test NOW Care 11/02/24 16:[address] Screening NOW Care 11/02/24 18:05 Active EKG (ED ONLY) *Do not use* NOW Care 11/02/24 16:09 Completed MRI Screening NOW Care 11/03/24 00:[address] abdomen pelvis wo con Stat Exams 11/02/24 20:[address] angio chest Stat Exams 11/02/24 18:04 Completed CXR2 [XR chest 2V] Stat Exams 11/02/24 16:09 Completed EKG (ED Only) Stat Exams 11/02/24 16:09 Draft MR thoracic spine w con Stat Exams 11/03/24 Ordered BNP [B-Type Natriuretic Peptide] Stat Lab 11/02/24 16:35 Completed Blood Culture (Lab) Stat Lab 11/03/24 15:04 Ordered CBC Stat Lab 11/02/24 16:35 Completed CBC Stat Lab 11/03/24 10:22 Completed CMP [Comprehensive Metabolic Panel] Stat Lab 11/02/24 16:35 Completed CMP [Comprehensive Metabolic Panel] Stat Lab 11/03/24 10:22 Completed CRP [C-Reactive Protein] Stat Lab 11/03/24 06:20 Completed ESR [Sed Rate (ESR)] Stat Lab 11/03/24 06:20 Completed Lipase Stat Lab 11/02/24 16:35 Completed Procalcitonin Stat Lab 11/03/24 10:22 Received Troponin I Stat Lab 11/02/24 16:35 Completed Troponin I Stat Lab 11/02/24 18:21 Completed Acetaminophen Tab [Tylenol ES Tab] Med 11/02/24 16:10 Discontinued 500 mg PO X1 ONE Cefepime Inj [Maxipime Inj] 1 gm Med 11/03/24 00:21 Discontinued SODIUM CHLORIDE 0.9% (Popper) [Ns 0.9% (P)] 50 ml IV X1 HYDROmorphone INJ [Dilaudid Inj] Med 11/03/24 15:02 Discontinued 0.5 mg IV NOW ONE HYDROmorphone INJ [Dilaudid Inj] Med 11/02/24 20:03 Discontinued 0.5 mg IVP X1 ONE HYDROmorphone INJ [Dilaudid Inj] Med 11/03/24 01:23 Discontinued 0.5 mg IVP X1 ONE HYDROmorphone INJ [Dilaudid Inj] Med 11/03/24 06:43 Discontinued 0.5 mg IVP X1 ONE HYDROmorphone INJ [Dilaudid Inj] Med 11/03/24 10:59 Discontinued 0.5 mg IVP X1 ONE Hydromorphone HCl [Dilaudid] Med 11/03/24 06:43 Discontinued 0.5 mg PO NOW ONE Ketorolac Inj [Toradol Inj] Med 11/02/24 16:39 Discontinued 15 mg IVP X1 ONE Labetalol IV [Trandate IV] Med 11/02/24 20:06 Discontinued 20 mg IVP X1 ONE Magnesium Sulfate 1 gm Ivpb [Magnesium Sulfate Ivpb] Med 11/02/24 17:55 Discontinued 1 gm in 100 ml IV NOW POTASSIUM CHL 10 mEq IVPB [Kcl Ivpb] Med 11/02/24 18:03 Discontinued 10 meq in 100 ml IV X1 Potassium Chloride [K-Dur] Med 11/02/24 18:03 Discontinued 40 meq PO X1 ONE Ringers Lactated 1000 ml [Lactated Ringers] 1,000 ml Med 11/03/24 15:02 Active IV 999 mls/hr Sodium Chloride 0.9% 1000 ml [Ns] 1,000 ml Med 11/03/24 01:48 Discontinued IV 999 mls/hr Vancomycin Inj 1,000 mg Med 11/03/24 00:21 Discontinued Sodium Chloride 0.9% 250 ml [Ns] 250 ml IV X1 fentaNYL INJ [Sublimaze Inj] Med 11/02/24 17:58 Discontinued 25 mcg IVP X1 ONE Vital Signs Vital signs: Vital Signs Temperature 98.0 F 11/02/24 15:55 Pulse Rate 100 11/02/24 15:55 Respiratory Rate 17 11/02/24 15:55 Blood Pressure 153/93 H 11/02/24 15:55 Pulse Oximetry (%) 96 11/02/24 15:55 Oxygen Delivery Method Nasal Cannula 11/02/24 15:55 Oxygen Flow Rate 2 11/02/24 15:55 Shortness of Breath / Dyspnea MDM Narrative MDM Narrative:: IHansa am scribing for and in the presence of Dr. Gandara. Patient is a 69-year-old female presenting with concerns for cough, increased production and pain with respirations. Vital signs and exam as listed. Ordered labs EKG chest x-ray offered medication for symptom relief. Concern for ACS arrhythmia electrolyte abnormality viral syndrome pneumonia pulmonary embolus pancreatitis partial bowel obstruction among others. EKG, sinus tachycardia. Prolonged QT, magnesium provided. Labs without acute hematologic abnormality, patient with hypokalemia repleted in the emergency department. Chest x-ray without any evidence of pneumonia however has large retrocardiac hernia. Ordered CT scan of the chest to look for pulmonary embolus send to further characterize patient's retrocardiac hernia. At this time accepted under transfer care over to the oncoming provider. Patient is pending results of her workup and safe dispo. Patient data External records reviewed:: [facility] previous records and EMS form Clinical information provided by:: patient and EMS Social determinants that could affect healthcare access:: none Patient has the following chronic illnesses:: sleep apnea, asthma, pancreatitis, hypertension, and GERD How is presenting disease/condition affected by chronic disease/condition?: exacerbated by Evaluation data The following diagnostics were reviewed and interpreted by me:: lab results, radiology exam(s) and EKG tracing(s) Lab and/or radiology exams considered but not ordered:: none Interpretation Summary: My interpretation: EKG performed at 1635 hours, sinus tachycardia, rate 110, QT prolonged, non specific ST-T wave changes, no cardiac alert Medications / Prescriptions Medications or Prescriptions considered but not ordered:: none Medication administrations:: Medication Administration History Lactated Ringer's (Lactated Ringers) 1,000 mls @ 999 mls/hr IV .Q1H1M ONE Stop: 11/03/24 16:02 Last Admin: 11/03/24 15:18 Dose: 999 mls/hr Documented By: RD Discontinued Medications Acetaminophen (Acetaminophen 500 Mg Tablet) 500 mg PO X1 ONE Stop: 11/02/24 16:11 Last Admin: 11/02/24 17:08 Dose: 500 mg Documented By: GM Fentanyl Citrate (Fentanyl Cit Inj 50 Mcg/Ml Amp 2ml) 25 mcg IVP X1 ONE Stop: 11/02/24 17:59 Last Admin: 11/02/24 18:08 Dose: 25 mcg Documented By: SVITLANA Hydromorphone HCl (Hydromorphone Inj 2 Mg/Ml Vial) 0.5 mg IVP X1 ONE Stop: 11/02/24 20:04 Last Admin: 11/02/24 21:29 Dose: 0.5 mg Documented By: DELMI Hydromorphone HCl (Hydromorphone Inj 2 Mg/Ml Vial) 0.5 mg IVP X1 ONE Stop: 11/03/24 01:24 Last Admin: 11/03/24 01:45 Dose: 0.5 mg Documented By: TITUS Hydromorphone HCl (Hydromorphone Hcl 2 Mg Tablet) 0.5 mg PO NOW ONE Stop: 11/03/24 06:44 Hydromorphone HCl (Hydromorphone Inj 2 Mg/Ml Vial) 0.5 mg IVP X1 ONE Stop: 11/03/24 06:44 Last Admin: 11/03/24 06:54 Dose: 0.5 mg Documented By: TITUS Hydromorphone HCl (Hydromorphone Inj 2 Mg/Ml Vial) 0.5 mg IVP X1 ONE Stop: 11/03/24 11:00 Last Admin: 11/03/24 11:15 Dose: 0.5 mg Documented By: BARNEY Hydromorphone HCl (Hydromorphone Inj 2 Mg/Ml Vial) 0.5 mg IV NOW ONE Stop: 11/03/24 15:03 Last Admin: 11/03/24 15:19 Dose: 0.5 mg Documented By: BARNEY Magnesium Sulfate/Dextrose (Magnesium Sulfate Ivpb) 1 gm in 100 mls @ 100 mls/hr IV NOW ONE Stop: 11/02/24 18:54 Last Infusion: 11/02/24 22:00 Dose: Infused Documented By: Admin: 11/02/24 19:17 Dose: 100 mls/hr Documented By: TITUS Potassium Chloride (Kcl Ivpb) 10 meq in 100 mls @ 100 mls/hr IV X1 ONE Stop: 11/02/24 19:02 Last Infusion: 11/02/24 20:30 Dose: Infused Documented By: Admin: 11/02/24 19:04 Dose: 100 mls/hr Documented By: SVITLANA Cefepime HCl 1 gm/ Sodium (Chloride) 50 mls @ 100 mls/hr IV X1 ONE Stop: 11/03/24 00:50 Last Infusion: 11/03/24 02:00 Dose: Infused Documented By: Admin: 11/03/24 01:24 Dose: 100 mls/hr Documented By: DELMI Vancomycin HCl 1,000 mg/ (Sodium Chloride) 250 mls @ 150 mls/hr IV X1 ONE Stop: 11/03/24 02:00 Last Infusion: 11/03/24 03:11 Dose: Infused Documented By: Admin: 11/03/24 01:27 Dose: 150 mls/hr Documented By: DELMI Sodium Chloride (Ns) 1,000 mls @ 999 mls/hr IV .Q1H1M ONE Stop: 11/03/24 02:48 Last Infusion: 11/03/24 04:20 Dose: Infused Documented By: Admin: 11/03/24 02:13 Dose: 999 mls/hr Documented By: DELMI Ketorolac Tromethamine (Ketorolac Inj 30 Mg/Ml Vial) 15 mg IVP X1 ONE Stop: 11/02/24 16:40 Last Admin: 11/02/24 17:08 Dose: 15 mg Documented By: GM Labetalol HCl (Labetalol Inj 5 Mg/Ml Vial 20 Ml) 20 mg IVP X1 ONE Stop: 11/02/24 20:07 Last Admin: 11/02/24 21:00 Dose: Not Given Documented By: TITUS Non-Admin Reason: Change of Condition Potassium Chloride (Potassium Chloride 20 Meq Tabcr) 40 meq PO X1 ONE Stop: 11/02/24 18:04 Last Admin: 11/02/24 19:04 Dose: 40 meq Documented By: SVITLANA see above Consultations Consultation(s) initiated? (list below): No Diagnosis Shortness of Breath Differential Diagnosis: other (community-acquired pneumonia, asthma exacerbation, and acute bronchitis with reactive airway disease) Most likely diagnosis given after review of the tests above:: No official diagnoses at this time, still pending diagnostic tests. Patient signout to the supervisory lifeguard provider. Admission Indicated Admission indicated?: not indicated Explain why admission is indicated or not indicated:: No final disposition plan at this time, still pending diagnostic tests. Patient signout to the supervisory lifeguard provider. Admission Request Was there a request for admission?: No Disposition Plan Disposition Plan: other (specify) (Patient signed to Dr. Virk.) Discharge Plan Prescriptions/Referrals Prescriptions/Med Rec: No Action alprazolam [Xanax] 1 MG tablet 0.5 mg PO DAILY Qty: 0 fluticasone propion-salmeterol [Advair HFA] 45-21 mcg/actuation Hfa Aerosol Inhaler 2 puff INHALATION QDAY Qty: 0 metoprolol succinate 25 mg Tablet Extended Release 24 Hr 12.5 mg PO QDAY albuterol sulfate [ProAir HFA] 90 mcg/actuation Hfa Aerosol Inhaler 1 puff INHALATION Q4H duloxetine [Cymbalta] 60 mg Capsule,Delayed Release(Dr/Ec) 60 mg PO QDAY acetaminophen [Tylenol 8 Hour] 650 mg Tablet Extended Release 650 mg PO Q8H omeprazole 20 mg Tablet,Delayed Release (Dr/Ec) 20 mg PO BID cyclobenzaprine 5 mg tablet 5 mg PO BID PRN (Reason: muscle spasm) Qty: 20 0RF tramadol 50 mg tablet 50 mg PO QID multivitamin Tablet 1 tab PO QDAY ascorbic acid (vitamin C) [Vitamin C] 1,000 mg Tablet 1 g PO QDAY magnesium 500 mg Tablet 500 mg PO QDAY zinc 50 mg Tablet 50 mg PO QDAY Prebiotic Fiber 2 gram Tablet,Chewable 2 g PO QDAY propranolol 10 mg tablet 10 mg PO AC Patient Comments: TAKE 1-2 TABLETS BY MOUTH EVERY DAY famotidine 20 mg tablet 20 mg PO BID Patient Comments: TAKE 1 TABLET BY MOUTH TWICE A DAY prednisone 10 mg tablet 10 mg PO DAILY Patient Comments: TAKE 1 TABLET BY MOUTH EVERY DAY meclizine 25 mg tablet 25 mg PO BID baclofen 10 mg tablet 10 mg PO BID MDD 2 Qty: 20 0RF hydrocodone-acetaminophen 5-325 mg tablet 1 tab PO BID MDD 2 Qty: 10 0RF Referrals: Daniel Milligan MD [Primary Care Provider] - In 1 week Problem List Clinical Impression: Acute hypoxic respiratory failure Patient/Caregiver Discharge Instructions Print Language: Gibraltarian
--- NOTE | 2024-11-02 16:09 | EKG_ITS ---
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
--- NOTE | 2024-11-02 16:09 | XR_ITS ---
Examination: AP lateral chest 2 views TECHNIQUE: Upright AP and lateral chest 2 views Date and time: November 02, 2024, 1718 hours INDICATIONS: Onset chest pain today. FINDINGS: Large retrocardiac gastric hernia Mild enlargement cardiac contour No lobar pneumonia or pulmonary edema The osseous structures are demineralized with old left-sided rib fractures Impression: Large retrocardiac gastric hernia
[2024-11-02 16:52] LABS: Basophils # (Auto) 0.1 Thou/mm3 (0.0-0.2); Basophils % (Auto) 1 % (0-2.5); Eosinophils # (Auto) 0.2 Thou/mm3 (0.0-0.5); Eosinophils % (Auto) 3 % (0-10); Hematocrit 34.4 % (36.0-46.0); Hemoglobin 11.4 g/dL (12.0-16.0); Immature Granulocytes Auto 0.03 Thou/mm3 (0.00-0.00); Lymphocytes # (Auto) 1.3 Thou/mm3 (1.0-4.8); Lymphocytes % (Auto) 17 % (10-50); Mean Corpuscular HGB Conc 33.1 g/dl (31.0-37.0); Mean Corpuscular Hemoglobin 30.6 pg (25.0-35.0); Mean Corpuscular Volume 92 fL (80-100); Monocytes # (Auto) 0.8 Thou/mm3 (0.0-0.8); Monocytes % (Auto) 10 % (0-12); Neutrophils # (Auto) 5.6 Thou/mm3 (1.8-7.7); Neutrophils % (Auto) 70 % (37-80); Nucleated Red Blood Cell # 0.00 Thou/mm3 (0.00-0.00); Nucleated Red Blood Cell % 0 /100 WBC (0); Platelet Count 448 Thou/mm3 (140-440); RDW Standard Deviation 41.1 fL (36.4-46.3); Red Blood Count 3.73 Miln/mm3 (4.00-5.20); White Blood Count 8.0 Thou/mm3 (3.6-11.0)
[2024-11-02] MEDS: ACETAMINOPHEN 500 MG TABLET PO (17:08)
[2024-11-02] MEDS: KETOROLAC INJ 30 MG/ML VIAL 15 MG IVP (17:08)
[2024-11-02 17:24] LABS: B-Type Natriuretic Peptide 114 pg/mL (0-100)
[2024-11-02 17:31] LABS: Alanine Aminotransferase 8 U/L (10-49); Albumin, Serum 3.7 gm/dL (3.4-4.8); Albumin/Globulin Ratio 0.9 (1.2-2.2); Alkaline Phosphatase 100 U/L (46-116); Anion Gap 15 (7-16); Aspartate Amino Transferase 18 U/L (0-34); BUN/Creatinine Ratio 23 Ratio (12-20); Bilirubin,Total 0.5 mg/dL (0.3-1.2); Blood Urea Nitrogen 18 mg/dL (9-23); Calcium 9.3 mg/dL (8.3-10.6); Calcium (Corrected) 9.5 mg/dL (8.5-10.1); Carbon Dioxide 29.4 mMol/L (20.0-31.0); Chloride 90 mMol/L (98-107); Creatinine (Component) 0.8 mg/dL (0.6-1.3); Estimated Creatinine Clearance 62.1 mL/min (>60); Globulin 4.2 gm/dL (2.3-3.5); Glucose 96 mg/dL (74-106); Lipase 17 U/L (12-53); Osmolality,Calculated 270 (275-295); Potassium 2.9 mMol/L (3.4-5.1); Sodium 134 mMol/L (136-145); Total Protein 7.9 gm/dL (5.7-8.2); eGFR > 60 See Note
[2024-11-02 17:39] LABS: Troponin I 0.046 ng/mL (0.0-0.045)
--- NOTE | 2024-11-02 18:04 | XR_ITS ---
Examination: CTA chest with intravenous contrast 2-D reconstructions 3-D reconstructions, vascular Date and time of exam: November 02, 2024 1849 hours INDICATIONS: Chest pain and difficulty breathing today CTDI: vol (mGy) 9.51. DLP: (mGycm) 249. Technique: Multiple axial sections of the thorax have been obtained. 3 mm slice thickness, from below the hemidiaphragms to above the apices of the lungs. Mediastinal and lung density settings have been obtained. 2-D sagittal and coronal reconstructions. 3-D angiographic renderings, 3-D volume renderings, 3D post processing, vascular maximum intensity projections obtained. Contrast administered is 60 cc Isovue 370.. Low dose protocols were performed. One or more of the following dose reduction techniques were used; automated exposure control, adjustment of the mA and/or KV according to patient size, use of iterative reconstruction technique. Findings: No thoracic aortic aneurysm dilatation or dissection. No pulmonary artery emboli. 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
[2024-11-02] MEDS: fentaNYL CIT INJ 50 mCg/ML AMP 2ML 25 MCG IVP (18:08)
--- NOTE | 2024-11-02 18:19 | PD.EDADDENDU ---
Emergency Room Addendum <Kelley Lai - Last Filed: 11/03/24 05:02> Addendum Narrative: 1800: Care assumed from Dr. Gandara (emergency physician). Past medical, surgical, social and family history reviewed. Vitals and home medications reviewed. Results and treatment plan discussed. I will assume the care of the patient at this time and will follow the patient, pending chest CTA and repeat Troponin I. The following addendum documentation note is intended to reflect any pending information, findings, or radiology results not included in the patient?s initial chart by the previous shift scribe. RADIOLOGY Chest CTA: Findings: No thoracic aortic aneurysm dilatation or dissection. No pulmonary artery emboli. 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 0013: Dr. Suarez made aware of the patient?s HPI, PMHx, lab and/or radiology results. Discussed treatment plan. Advises T-Spine MRI. 0140: Yazdanism made aware of the patient?s HPI, PMHx, lab and/or radiology results. Treatment plan was discussed for possible transfer. Will return call. Patient was found to have possible osteomyelitis of T9 and T10 with prominent cortical bone destruction at that level with paraspinal soft tissue mass. Patient has persistent tachycardia here in the emergency room with heart rate approximately 115. Patient was given cefepime 1 g IV and vancomycin 1 g IV. Patient needs an MRI and based on the results of that MRI of the thoracic spine, the patient may need neurosurgical consultation. At this time, attempts to transfer the patient to a facility with MRI capability as well as neurosurgical capability are being sought. 0315: [facility] made aware of the patient?s HPI, PMHx, lab and/or radiology results. Treatment plan was discussed for possible transfer. Will return call. I spoke with [facility] at 3:22 AM and gave them a rundown on this patient. They are going to present this patient to the neurosurgical team to see if they will accept the patient. The transfer center at [facility] called back at 3:45 AM and stated that they had spoken with the neurosurgical fellow who needs to present the case to the attending neurosurgical physician during rounds in the morning. They asked for a CRP and sed rate to be obtained. These tests were ordered. 0600: Care assumed by Dr. Gandara (emergency physician). Past medical, surgical, social and family history reviewed. Vitals and home medications reviewed. Results and treatment plan discussed. They will assume the care of the patient at this time and will follow the patient, pending Transfer for MRI. <Bayron Virk, DO - Last Filed: 11/03/24 03:50> Addendum Narrative: 1800: Care assumed from Dr. Gandara (emergency physician). Past medical, surgical, social and family history reviewed. Vitals and home medications reviewed. Results and treatment plan discussed. I will assume the care of the patient at this time and will follow the patient, pending chest CTA and repeat Troponin I. The following addendum documentation note is intended to reflect any pending information, findings, or radiology results not included in the patient?s initial chart by the previous shift scribe. RADIOLOGY Chest CTA: Findings: No thoracic aortic aneurysm dilatation or dissection. No pulmonary artery emboli. Large diaphragmatic defect extending into the hemithoraces containing stomach and bowel which is significantly limiting respiratory function No pneumonia or pulmonary edema Liver is mildly irregular in contour Significant renal scarring with 2 mm calculus upper pole left kidney Prominent cortical bone destruction involving T9 and T10 with paraspinal soft tissue mass at these levels
[2024-11-02 18:44] LABS: Troponin I 0.045 ng/mL (0.0-0.045)
[2024-11-02] MEDS: POTASSIUM CHL 10 mEq IVPB 10 MEQ/100 ML BAG 100 MEQ IV (19:04)
--- NOTE | 2024-11-02 20:00 | XR_ITS ---
Examination: CT abdomen and pelvis without contrast. Coronal 3-D reconstructions. Sagittal 2-D reconstructions. Date and time of exam:November 02, 20242048 hours Comparison September 30, 2024 CTDI: vol (mGy): 7.24 DLP: (mGycm): 365 Technique: Axial images of the abdomen have been obtained, 3 mm slice thickness Intravenous contrast material has not been administered. Low dose protocols were performed. One or more of the following dose reduction techniques were used; automated exposure control, adjustment of the mA and/or KV according to patient size, use of iterative reconstruction technique. 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 Normal appendix No bowel obstruction No pelvic mass Advanced diffuse lumbar degenerative disc disease
[2024-11-02] MEDS: HYDROmorphone INJ 2 MG/ML VIAL 0.5 MG IVP (21:29)
[2024-11-03] VITALS (8 sets, daily range): BP systolic 145–167; BP diastolic 93–109; PULSE 103–113; RESP 16–20; TEMP 36.5–37.2; O2SAT 92–100
--- NOTE | 2024-11-03 01:07 | PC.NURSE ---
Transfer packet faxed over to [facility] due our MRI being down. Pt's CTA shows osteomyelitis of T-9, T-10 region and needs MRI for possible associated abscess. We are requesting Neuro Surgery, if findings are confirmed.
[2024-11-03] MEDS: CEFEPIME INJ 1 GM in SODIUM CHLORIDE 0.9% (Popper) 50 ML IV (01:24)
[2024-11-03] MEDS: Vancomycin Inj 1,000 MG in SODIUM CHLORIDE 0.9% 250 ML 250 ML 150 MG IV (01:27)
[2024-11-03] MEDS: HYDROmorphone INJ 2 MG/ML VIAL 0.5 MG IVP ×4 (01:45→16:54)
--- NOTE | 2024-11-03 01:53 | PC.NURSE ---
Per [facility] if findings are true, pt will need and anterior approach which per Chestine at [facility] they do not do, they recommended to reach out to [facility]. [facility] faxed over packet.
[2024-11-03] MEDS: SODIUM CHLORIDE 0.9% 1000 ML 1,000 ML 999 ML IV (02:13)
--- NOTE | 2024-11-03 03:20 | PC.NURSE ---
[facility] forwarded imaging per their request, they are reviewing case
--- NOTE | 2024-11-03 03:46 | PC.NURSE ---
Per [facility] transfer center the Resident will present it to the Neuro Surgeon business continuity planning director in the morning, during rounds.
--- NOTE | 2024-11-03 06:34 | PD.EDADDENDU ---
Emergency Room Addendum <Hansa Arriaga - Last Filed: 11/03/24 14:38> Addendum Narrative: 0600: Care assumed from Dr. Virk, the previous shift emergency physician. Past medical, surgical, social and family history reviewed. Vitals and home medications reviewed. I will assume the care of the patient at this time, pending transfer. Please refer to the emergency department record for history and examination from initial visit.? Physical exam by me shows patient under no acute distress at this time. The patient was found to have possible osteomyelitis involving the T9?T10 vertebrae, with imaging showing prominent cortical bone destruction and a paraspinal soft tissue mass. She remains persistently tachycardic in the ED with heart rates around 115 bpm. Empiric IV antibiotics were initiated with cefepime and vancomycin. A thoracic spine MRI was recommended to further evaluate the extent of infection and determine the need for neurosurgical intervention. Multiple facilities, including [facility] and [facility], were contacted for potential transfer due to the need for MRI and neurosurgical capabilities. [facility] is currently reviewing the case, and their neurosurgical team will reassess after rounds in the morning. In the meantime, additional labs including CRP and ESR were ordered per the transfer center?s request and are currently pending. 1435: Patient was accepted for transfer by Dr. Aiken from [facility] from ED to ED. <Marci Gandara MD - Last Filed: 11/03/24 15:40> Addendum Narrative: 0600: Care assumed from Dr. Virk, the previous shift emergency physician. Past medical, surgical, social and family history reviewed. Vitals and home medications reviewed. I will assume the care of the patient at this time, pending transfer. Please refer to the emergency department record for history and examination from initial visit.? Physical exam by me shows patient under no acute distress at this time. The patient was found to have possible osteomyelitis involving the T9?T10 vertebrae, with imaging showing prominent cortical bone destruction and a paraspinal soft tissue mass. She remains persistently tachycardic in the ED with heart rates around 115 bpm. Empiric IV antibiotics were initiated with cefepime and vancomycin. A thoracic spine MRI was recommended to further evaluate the extent of infection and determine the need for neurosurgical intervention. Multiple facilities, including [facility] and [facility], were contacted for potential transfer due to the need for MRI and neurosurgical capabilities. [facility] is currently reviewing the case, and their neurosurgical team will reassess after rounds in the morning. In the meantime, additional labs including CRP and ESR were ordered per the transfer center?s request and are currently pending. ESR and CRP elevated. Patient with dry mucous membranes provided patient with a liter of fluids. Also ordered blood cultures. Patient received antibiotics earlier in the day. Patient does not have a history of any instrumentation to the spine, no spinal injections. No history of trauma to the back, no history of IV drug use, no recent travel. 1435: Patient was accepted for transfer by Dr. Aiken from [facility] from ED to ED. updated patient as well as her son Johnathon over the phone. In agreement with transfer. Results <Hansa Arriaga - Last Filed: 11/03/24 14:38> Objective Laboratory: Laboratory Last Values WBC 6.9 Thou/mm3 (3.6-11.0) 11/03/24 10:22 RBC 3.39 Miln/mm3 (4.00-5.20) L 11/03/24 10:22 Hgb 10.2 g/dL (12.0-16.0) L 11/03/24 10:22 Hct 32.1 % (36.0-46.0) L 11/03/24 10:22 MCV 95 fL (80-100) 11/03/24 10:22 MCH 30.1 pg (25.0-35.0) 11/03/24 10:22 MCHC 31.8 g/dl (31.0-37.0) 11/03/24 10:22 RDW Std Deviation 43.2 fL (36.4-46.3) 11/03/24 10:22 Plt Count 378 Thou/mm3 (140-440) D 11/03/24 10:22 Neut % (Auto) 61 % (37-80) 11/03/24 10:22 Lymph % (Auto) 20 % (10-50) 11/03/24 10:22 Ward % (Auto) 14 % (0-12) H 11/03/24 10:22 Eos % (Auto) 4 % (0-10) 11/03/24 10:22 Baso % (Auto) 1 % (0-2.5) 11/03/24 10:22 Neut # (Auto) 4.2 Thou/mm3 (1.8-7.7) 11/03/24 10:22 Lymph # (Auto) 1.4 Thou/mm3 (1.0-4.8) 11/03/24 10:22 Ward # (Auto) 1.0 Thou/mm3 (0.0-0.8) H 11/03/24 10:22 Eos # (Auto) 0.3 Thou/mm3 (0.0-0.5) 11/03/24 10:22 Baso # (Auto) 0.1 Thou/mm3 (0.0-0.2) 11/03/24 10:22 Immature Gran # (Auto) 0.03 Thou/mm3 (0.00-0.00) H 11/03/24 10:22 Absolute Nucleated RBC 0.00 Thou/mm3 (0.00-0.00) 11/03/24 10:22 Immature Gran % 0 % (0-0) 11/03/24 10:22 Nucleated RBC % 0 /100 WBC (0) 11/03/24 10:22 ESR 75 mm/hr (0-30) H 11/03/24 06:20 Sodium 138 mMol/L (136-145) 11/03/24 10:22 Potassium 3.7 mMol/L (3.4-5.1) D 11/03/24 10:22 Chloride 97 mMol/L (98-107) L 11/03/24 10:22 Carbon Dioxide 30.2 mMol/L (20.0-31.0) 11/03/24 10:22 Anion Gap 11 (7-16) 11/03/24 10:22 BUN 17 mg/dL (9-23) 11/03/24 10:22 Creatinine 0.8 mg/dL (0.6-1.3) 11/03/24 10:22 Estim Creat Clear Calc 62.1 mL/min (>60) 11/03/24 10:22 eGFR > 60 See Note (60-) 11/03/24 10:22 BUN/Creatinine Ratio 21 Ratio (12-20) H 11/03/24 10:22 Glucose 82 mg/dL (74-106) 11/03/24 10:22 Calculated Osmolality 276 (275-295) 11/03/24 10:22 Calcium 8.9 mg/dL (8.3-10.6) 11/03/24 10:22 Corrected Calcium 9.5 mg/dL (8.5-10.1) 11/03/24 10:22 Total Bilirubin 0.4 mg/dL (0.3-1.2) 11/03/24 10:22 AST 16 U/L (0-34) 11/03/24 10:22 ALT 7 U/L (10-49) L 11/03/24 10:22 Alkaline Phosphatase 88 U/L (46-116) 11/03/24 10:22 Troponin I 0.045 ng/mL (0.0-0.045) 11/02/24 18:21 C-Reactive Prot, Quant 6.2 mg/dL (0.0-0.9) H 11/03/24 06:20 B-Natriuretic Peptide 114 pg/mL (0-100) H 11/02/24 16:35 Total Protein 7.0 gm/dL (5.7-8.2) 11/03/24 10:22 Albumin 3.3 gm/dL (3.4-4.8) L 11/03/24 10:22 Globulin 3.7 gm/dL (2.3-3.5) H 11/03/24 10:22 Albumin/Globulin Ratio 0.9 (1.2-2.2) L 11/03/24 10:22 Lipase 17 U/L (12-53) 11/02/24 16:35 Imaging: Procedure(s): CT abdomen pelvis wo [facility] Accession Number(s): [id number] cc: Daniel Milligan MD; Nghia Tirado MD; Bayron Virk DO~ Examination: CT abdomen and pelvis without contrast. Coronal 3-D reconstructions. Sagittal 2-D reconstructions. Date and time of exam:November 02, 20242048 hours Comparison September 30, 2024 CTDI: vol (mGy): 7.24 DLP: (mGycm): 365 Technique: Axial images of the abdomen have been obtained, 3 mm slice thickness Intravenous contrast material has not been administered. Low dose protocols were performed. One or more of the following dose reduction techniques were used; automated exposure control, adjustment of the mA and/or KV according to patient size, use of iterative reconstruction technique. 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 Normal appendix No bowel obstruction No pelvic mass Advanced diffuse lumbar degenerative disc disease Dictated By: Nghia Tirado MD Procedure(s): CT angio chest Accession Number(s): [id number] cc: Daniel Milligan MD; Nghia iTrado MD; Marci Gandara MD~ Examination: CTA chest with intravenous contrast 2-D reconstructions 3-D reconstructions, vascular Date and time of exam: November 02, 2024 1849 hours INDICATIONS: Chest pain and difficulty breathing today CTDI: vol (mGy) 9.51. DLP: (mGycm) 249. Technique: Multiple axial sections of the thorax have been obtained. 3 mm slice thickness, from below the hemidiaphragms to above the apices of the lungs. Mediastinal and lung density settings have been obtained. 2-D sagittal and coronal reconstructions. 3-D angiographic renderings, 3-D volume renderings, 3D post processing, vascular maximum intensity projections obtained. Contrast administered is 60 cc Isovue 370.. Low dose protocols were performed. One or more of the following dose reduction techniques were used; automated exposure control, adjustment of the mA and/or KV according to patient size, use of iterative reconstruction technique. Findings: No thoracic aortic aneurysm dilatation or dissection. No pulmonary artery emboli. 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 FINDINGS: Large retrocardiac gastric hernia Mild enlargement cardiac contour No lobar pneumonia or pulmonary edema The osseous structures are demineralized with old left-sided rib fractures Impression: Large retrocardiac gastric hernia Dictated By: Nghia Tiardo MD <Marci Gandara MD - Last Filed: 11/03/24 15:40> Objective Laboratory: Laboratory Last Values WBC 6.9 Thou/mm3 (3.6-11.0) 11/03/24 10:22 RBC 3.39 Miln/mm3 (4.00-5.20) L 11/03/24 10:22 Hgb 10.2 g/dL (12.0-16.0) L 11/03/24 10:22 Hct 32.1 % (36.0-46.0) L 11/03/24 10:22 MCV 95 fL (80-100) 11/03/24 10:22 MCH 30.1 pg (25.0-35.0) 11/03/24 10:22 MCHC 31.8 g/dl (31.0-37.0) 11/03/24 10:22 RDW Std Deviation 43.2 fL (36.4-46.3) 11/03/24 10:22 Plt Count 378 Thou/mm3 (140-440) D 11/03/24 10:22 Neut % (Auto) 61 % (37-80) 11/03/24 10:22 Lymph % (Auto) 20 % (10-50) 11/03/24 10:22 Ward % (Auto) 14 % (0-12) H 11/03/24 10:22 Eos % (Auto) 4 % (0-10) 11/03/24 10:22 Baso % (Auto) 1 % (0-2.5) 11/03/24 10:22 Neut # (Auto) 4.2 Thou/mm3 (1.8-7.7) 11/03/24 10:22 Lymph # (Auto) 1.4 Thou/mm3 (1.0-4.8) 11/03/24 10:22 Ward # (Auto) 1.0 Thou/mm3 (0.0-0.8) H 11/03/24 10:22 Eos # (Auto) 0.3 Thou/mm3 (0.0-0.5) 11/03/24 10:22 Baso # (Auto) 0.1 Thou/mm3 (0.0-0.2) 11/03/24 10:22 Immature Gran # (Auto) 0.03 Thou/mm3 (0.00-0.00) H 11/03/24 10:22 Absolute Nucleated RBC 0.00 Thou/mm3 (0.00-0.00) 11/03/24 10:22 Immature Gran % 0 % (0-0) 11/03/24 10:22 Nucleated RBC % 0 /100 WBC (0) 11/03/24 10:22 ESR 75 mm/hr (0-30) H 11/03/24 06:20 Sodium 138 mMol/L (136-145) 11/03/24 10:22 Potassium 3.7 mMol/L (3.4-5.1) D 11/03/24 10:22 Chloride 97 mMol/L (98-107) L 11/03/24 10:22 Carbon Dioxide 30.2 mMol/L (20.0-31.0) 11/03/24 10:22 Anion Gap 11 (7-16) 11/03/24 10:22 BUN 17 mg/dL (9-23) 11/03/24 10:22 Creatinine 0.8 mg/dL (0.6-1.3) 11/03/24 10:22 Estim Creat Clear Calc 62.1 mL/min (>60) 11/03/24 10:22 eGFR > 60 See Note (60-) 11/03/24 10:22 BUN/Creatinine Ratio 21 Ratio (12-20) H 11/03/24 10:22 Glucose 82 mg/dL (74-106) 11/03/24 10:22 Calculated Osmolality 276 (275-295) 11/03/24 10:22 Calcium 8.9 mg/dL (8.3-10.6) 11/03/24 10:22 Corrected Calcium 9.5 mg/dL (8.5-10.1) 11/03/24 10:22 Total Bilirubin 0.4 mg/dL (0.3-1.2) 11/03/24 10:22 AST 16 U/L (0-34) 11/03/24 10:22 ALT 7 U/L (10-49) L 11/03/24 10:22 Alkaline Phosphatase 88 U/L (46-116) 11/03/24 10:22 Troponin I 0.045 ng/mL (0.0-0.045) 11/02/24 18:21 C-Reactive Prot, Quant 6.2 mg/dL (0.0-0.9) H 11/03/24 06:20 B-Natriuretic Peptide 114 pg/mL (0-100) H 11/02/24 16:35 Total Protein 7.0 gm/dL (5.7-8.2) 11/03/24 10:22 Albumin 3.3 gm/dL (3.4-4.8) L 11/03/24 10:22 Globulin 3.7 gm/dL (2.3-3.5) H 11/03/24 10:22 Albumin/Globulin Ratio 0.9 (1.2-2.2) L 11/03/24 10:22 Lipase 17 U/L (12-53) 11/02/24 16:35 Critical Care Time <Hansa Arriaga - Last Filed: 11/03/24 14:38> Critical Care Time Critical Care Time: Yes Total Critical Care Time (min.): 40 Attestation: The high probability of sudden, clinically significant deterioration in the patient?s condition required the highest level of my preparedness to intervene urgently. The services I provided to this patient were to treat and/or prevent clinically significant deterioration. Services included the following: chart data review, reviewing nursing notes and/or old charts, documentation time, risk consultant collaboration regarding findings and treatment options, medication orders and management, direct patient care, vital sign assessments and ordering, interpreting and reviewing diagnostic studies and lab tests. Aggregate critical care time includes only time during which I was engaged in work directly related to the patient?s care, as described above, whether at bedside or elsewhere in the Emergency Department. It did not include time spent performing other reported procedures or the services of residents, students, nurses or physician assistants. <Marci Gandara MD - Last Filed: 11/03/24 15:40> Critical Care Time Total Critical Care Time (min.): 80
[2024-11-03 07:29] LABS: Sed Rate (ESR) 75 mm/hr (0-30)
[2024-11-03 07:35] LABS: C-Reactive Protein 6.2 mg/dL (0.0-0.9)
--- NOTE | 2024-11-03 08:14 | PC.CC ---
Addendum entered by Cheryl Danielle RN 11/03/24 15:06: 1505 called [facility], spoke to Josefina and informed grape picker is 1700. Addendum entered by Cheryl Danielle RN 11/03/24 15:05: 1500 sent paperwork to [facility] through [employer]. Called [facility], spoke to Laurie and setup the transport. 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 Addendum entered by Cheryl Danielle RN 11/03/24 15:02: 1445 transfer packet is complete with CD inside including all signatures. Transfer packet given to charge nurse and number to call for report is on tracker. Addendum entered by Cheryl Danielle RN 11/03/24 14:07: 1403 received call from Digna at [facility] that pt is accepted at [facility] for ED to ED transfer. Accepted by Dr. Aiken. Number for report is [phone]. Addendum entered by Cheryl Danielle RN 11/03/24 13:05: 1300 called [facility], spoke to Josefina regarding transfer update. Josefina stated she is still waiting for neurosurgery to call back. Addendum entered by Cheryl Danielle RN 11/03/24 11:13: 1112 called [facility], spoke to Marci regarding transfer update. Marci stated the case has been presented to neuro-surgery team and TC is waiting for their response. Addendum entered by Cheryl Danielle RN 11/03/24 11:12: 1104 note entered in error, please disregard. Addendum entered by Cheryl Danielle RN 11/03/24 11:08: 1104 called [facility], spoke to Arlen for transfer for CT imaging. Arlen informed me that their CT limit is 450 lbs. Addendum entered by Cheryl Danielle RN 11/03/24 08:59: 0858 Images pushed over to [facility] via [employer]. 0838 Josefina from [facility] called and asked for images to be pushed. Addendum entered by Cheryl Danielle RN 11/03/24 08:24: 0824 labs faxed to [facility]. Addendum entered by Cheryl Danielle RN 11/03/24 08:22: 0820 called [facility], spoke to Josefina. I upated her about ESR and CRP labs. She stated to fax the labs and she will updated the neuro-surgery team. Original Note: [address] Gandara, transfer diagnosis are discitis with paraspinal mass. 1058 spoke to ER charge nurse, pt needs to be transferred for neurosurgical services. Got updates Antonio esquivel, [facility] working on it and asked for ESR and CRP labs.
[2024-11-03 10:36] LABS: Basophils # (Auto) 0.1 Thou/mm3 (0.0-0.2); Basophils % (Auto) 1 % (0-2.5); Eosinophils # (Auto) 0.3 Thou/mm3 (0.0-0.5); Eosinophils % (Auto) 4 % (0-10); Hematocrit 32.1 % (36.0-46.0); Hemoglobin 10.2 g/dL (12.0-16.0); Immature Granulocytes Auto 0.03 Thou/mm3 (0.00-0.00); Lymphocytes # (Auto) 1.4 Thou/mm3 (1.0-4.8); Lymphocytes % (Auto) 20 % (10-50); Mean Corpuscular HGB Conc 31.8 g/dl (31.0-37.0); Mean Corpuscular Hemoglobin 30.1 pg (25.0-35.0); Mean Corpuscular Volume 95 fL (80-100); Monocytes # (Auto) 1.0 Thou/mm3 (0.0-0.8); Monocytes % (Auto) 14 % (0-12); Neutrophils # (Auto) 4.2 Thou/mm3 (1.8-7.7); Neutrophils % (Auto) 61 % (37-80); Nucleated Red Blood Cell # 0.00 Thou/mm3 (0.00-0.00); Nucleated Red Blood Cell % 0 /100 WBC (0); Platelet Count 378 Thou/mm3 (140-440); RDW Standard Deviation 43.2 fL (36.4-46.3); Red Blood Count 3.39 Miln/mm3 (4.00-5.20); White Blood Count 6.9 Thou/mm3 (3.6-11.0)
[2024-11-03 10:58] LABS: Alanine Aminotransferase 7 U/L (10-49); Albumin, Serum 3.3 gm/dL (3.4-4.8); Albumin/Globulin Ratio 0.9 (1.2-2.2); Alkaline Phosphatase 88 U/L (46-116); Anion Gap 11 (7-16); Aspartate Amino Transferase 16 U/L (0-34); BUN/Creatinine Ratio 21 Ratio (12-20); Bilirubin,Total 0.4 mg/dL (0.3-1.2); Blood Urea Nitrogen 17 mg/dL (9-23); Calcium 8.9 mg/dL (8.3-10.6); Calcium (Corrected) 9.5 mg/dL (8.5-10.1); Carbon Dioxide 30.2 mMol/L (20.0-31.0); Chloride 97 mMol/L (98-107); Creatinine (Component) 0.8 mg/dL (0.6-1.3); Estimated Creatinine Clearance 62.1 mL/min (>60); Globulin 3.7 gm/dL (2.3-3.5); Glucose 82 mg/dL (74-106); Osmolality,Calculated 276 (275-295); Potassium 3.7 mMol/L (3.4-5.1); Sodium 138 mMol/L (136-145); Total Protein 7.0 gm/dL (5.7-8.2); eGFR > 60 See Note
[2024-11-03] MEDS: RINGERS LACTATED 1000 ML 1,000 ML 999 ML IV (15:18)
[2024-11-03] MEDS: HYDROmorphone INJ 2 MG/ML VIAL 0.5 MG IV (15:19)
[2024-11-03 15:48] LABS: Procalcitonin 0.59 ng/ml (0.0-0.49)
--- NOTE | 2024-11-03 17:18 | PC.NURSE ---
REPORT GIVEN TO JAYJAY SHETH AT [facility] VIA PHONE.
== END 2024-11-03 17:19 | disposition short-term general hospital (02) ==
PROVIDERS: Emergency Medicine; Emergency Provider Emergency Medicine; PCP Internal Medicine
DX: J96.01 Acute respiratory failure with hypoxia (principal); M89.8X8 Other specified disorders of bone, other site; R00.0 Tachycardia, unspecified; J98.6 Disorders of diaphragm; K74.60 Unspecified cirrhosis of liver; N28.89 Other specified disorders of kidney and ureter; K46.9 Unspecified abdominal hernia without obstruction or gangrene; M51.369 Other intervertebral disc degeneration, lumbar region without mention of lumbar back pain or lower extremity pain; Z75.1 Person awaiting admission to adequate facility elsewhere
CPT/HCPCS: 36415; 71046; 71275; 74176; 80053; 83690; 83880; 84145; 84484; 85025; 85652; 86140; 87040; 87400; 87811; 93005; 96361; 96365; 96366; 96375; 96376; 99284; A4649; J0692; J1171; J1885; J3010; J3373; J3475; J3480; J7030; J7050; J7120; Q9967; A9270

== ENCOUNTER → 2025-02-24 | Outpatient (CLI) | payer MEDICARE, BC, SELFPAY ==
--- NOTE | 2025-02-24 07:45 | XR_ITS ---
EXAMINATION: MRI cervical spine with intravenous contrast TECHNIQUE: Multiple sagittal and axial MRI images post intravenous administration 12 cc gadolinium Date and time: February 24, 2025, 0904 hours INDICATIONS: Muscle weakness leg pain back pain weakness in the legs beginning 3 months ago. FINDINGS: Study is degraded by patient motion Adequate alignment cervical vertebral bodies Moderate to advanced disc narrowing C5-C6 Intact odontoid No cervical fracture No localized enlargement of cervical cord Post contrast images demonstrate no abnormal osseous epidural or cervical cord enhancement IMPRESSION: Moderate to advanced degenerative disc disease C5-C6 No abnormal osseous epidural or cervical cord enhancement
--- NOTE | 2025-02-24 08:15 | XR_ITS ---
EXAMINATION: MRI thoracic spine with intravenous contrast TECHNIQUE: Multiple MRI axial sagittal MRI images post intravenous administration 12 cc gadolinium Date and time: February 24, 2025, 0904 hours INDICATIONS: Back pain weakness in the legs beginning 3 months ago FINDINGS: Abnormal enhancement and bone destruction involving the T9 and T10 vertebral bodies, diffuse osseous enhancement Epidural enhancement posterior to the vertebral bodies in addition, measuring up to 4 mm contiguous with the anterior margin of the thoracic cord Intervening disc shows enhancement No localized enlargement thoracic cord IMPRESSION: Abnormal enhancement involving contiguous vertebral bodies T9 and T10 and intervening disc, most consistent with osteomyelitis discitis Recommend CT scan thoracic spine post intravenous contrast follow-up
== END | disposition home or self-care (01) ==
PROVIDERS: PCP Internal Medicine; Referring Provider Hospitalist; Visit Provider Hospitalist
DX: M50.322 Other cervical disc degeneration at C5-C6 level (principal); M85.88 Other specified disorders of bone density and structure, other site
CPT/HCPCS: 72142; 72147; A9577